=== PATIENT | female | born 1955 | race Caucasian/White ===

== ENCOUNTER 2017-05-18 19:28 | Inpatient (IN) | payer MEDICAID, SELFPAY ==
[~2017-05-18] VITALS: Ht 152.4 cm; Wt 56.2 kg
[2017-05-18] MEDS ORDERED: ALBUTEROL/IPRATROPIUM 2.5MG/0.5MG, 3 ML ONE ×2 (19:53→23:03)
[2017-05-18] MEDS ORDERED: methylPREDNISolone SOD SUCC 125 MG/2 ML IVP ONE (20:00)
[2017-05-18] MEDS ORDERED: PLEASE ENTER ALLERGIES MC SCH ×2 (20:00)
[2017-05-18] MEDS ORDERED: ALBUTEROL/IPRATROPIUM 2.5MG/0.5MG, 3 ML NPPB PRN (20:00)
[2017-05-18] MEDS ORDERED: SODIUM CHLORIDE FLUSH 10ML SYR IVF ONE (20:00)
[2017-05-18] MEDS ORDERED: DILTIAZEM 5 MG/ML, 5ML IV ONE (20:00)
[2017-05-18] MEDS ORDERED: DILTIAZEM 5 MG/ML, 5ML ONE (20:06)
[2017-05-18] MEDS ORDERED: methylPREDNISolone SOD SUCC 125 MG/2 ML ONE (20:07)
[2017-05-18] MEDS ORDERED: OXYcodone/APAP 5/325MG TABLET ONE (20:17)
[2017-05-18] MEDS ORDERED: ONDANSETRON 2MG/ML, 2ML ONE (20:18)
[2017-05-18 20:24] LABS: RAPID INFLUENZA A Negative (Negative); RAPID INFLUENZA B Negative (Negative)
[2017-05-18] MEDS ORDERED: OXYcodone/APAP 5/325MG TABLET PO ONE (20:30)
[2017-05-18] MEDS ORDERED: ONDANSETRON 2MG/ML, 2ML IVPush ONE (20:30)
[2017-05-18 20:48] LABS: ABG COLLECTION SITE LEFT BRACHIAL
[2017-05-18 20:54] LABS: HEMATOCRIT 54.3 % (34.6-47.8); HEMOGLOBIN 18.3 g/dL (11.7-16.4); WHITE BLOOD COUNT 13.8 x10^3/uL (3.4-10)
[2017-05-18 21:00] LABS: BLOOD UREA NITROGEN 11 mg/dL (7-18)
[2017-05-18 21:05] LABS: ASPARTATE AMINO TRANSFERASE 18 U/L (15-37)
[2017-05-18 21:13] LABS: IS PT STATUS REG ER OR PRE ER? YES
[2017-05-18] MEDS ORDERED: LORazepam 2 MG/ML, 1ML ONE (21:18)
[2017-05-18] MEDS ORDERED: LORazepam 2 MG/ML, 1ML IVPush ONE (21:30)
[2017-05-18] MEDS ORDERED: LEVO175T5 PO (21:55)
[2017-05-18] MEDS ORDERED: CITA20TA5 PO (21:56)
[2017-05-18] MEDS ORDERED: CYCL-259 PO (22:06)
[2017-05-18] MEDS ORDERED: HYDR-3307 PO (22:06)
[2017-05-18] MEDS ORDERED: ALPR1TAB6 PO (22:07)
[2017-05-18] MEDS ORDERED: FLUT1AER INH (22:08)
[2017-05-18] MEDS ORDERED: ALBUTEROL INH (22:09)
[2017-05-18] MEDS ORDERED: OXYGEN (22:09)
[2017-05-18] MEDS ORDERED: ONDANSETRON 2MG/ML, 2ML IVPush PRN (23:00)
[2017-05-18] MEDS ORDERED: hydrALAzine 20 MG/ML, 1ML IVPush PRN (23:00)
[2017-05-18] MEDS ORDERED: KETOROLAC 30 MG/1 ML IVPush ONE (23:00)
[2017-05-18] MEDS ORDERED: SODIUM CHLORIDE FLUSH 10ML SYR IVF PRN (23:00)
[2017-05-18] MEDS ORDERED: ENOXAPARIN 40 MG/0.4 ML ONE (23:13)
[2017-05-18] MEDS ORDERED: KETOROLAC 30 MG/1 ML ONE (23:13)
[2017-05-18 23:25] LABS: ABG COLLECTION SITE RIGHT RADIAL; COLLATERAL CIRCULATION TESTING NORMAL
[2017-05-18] MEDS: ENOXAPARIN 40 MG/0.4 ML SQ SCH (23:25)
[2017-05-18] MEDS: SODIUM CHLORIDE 0.9% 1,000 ML IV SCH (23:50)
[2017-05-18] MEDS: DOXYCYCLINE 100 MG in DEXTROSE 5% 250 ML IV SCH (23:51)
[2017-05-19] MEDS: HYDROcodone/APAP 10/325 MG TABLET PO SCH ×2 (00:47→20:56)
[2017-05-19] MEDS ORDERED: HYDROcodone/APAP 10/325 MG TABLET ONE (00:47)
[2017-05-19] MEDS ORDERED: MIDAZOLAM 1 MG/ML, 5ML IVPush ONE (01:45)
[2017-05-19] MEDS ORDERED: ETOMIDATE 20 MG/10 ML IVPush ONE (01:46)
[2017-05-19] MEDS ORDERED: PHARMACY MAY ADJ FOR RENAL FX MC SCH (02:00)
[2017-05-19] MEDS ORDERED: LIDOCAINE-MPF 1%, 2ML ENDO PRN (02:00)
[2017-05-19] MEDS ORDERED: SODIUM CHLORIDE 0.9% 1,000ML IVBOLUS ONE (02:30)
[2017-05-19] MEDS: methylPREDNISolone SOD SUCC 125 MG/2 ML IVPush SCH ×4 (02:44→20:08)
[2017-05-19 02:46] LABS: ABG COLLECTION SITE NOT DOCUMENTED
[2017-05-19 02:47] LABS: HEMOGLOBIN 16.3 g/dL (11.7-16.4)
[2017-05-19 02:58] LABS: BLOOD UREA NITROGEN 18 mg/dL (7-18)
[2017-05-19 04:00] VITALS: BP 114/68
[2017-05-19] MEDS: PROPOFOL 100 ML IV PRN ×4 (05:40→19:36)
[2017-05-19] MEDS: FAMOTIDINE 20 MG/2 ML IV SCH ×2 (05:42→16:13)
[2017-05-19] MEDS: ALBUTEROL/IPRATROPIUM 2.5MG/0.5MG, 3 ML INLINE SCH ×5 (07:15→22:00)
[2017-05-19] MEDS ORDERED: PROPOFOL 10 MG/ML, 100ML IV ONE (08:00)
[2017-05-19] MEDS ORDERED: ETOMIDATE 20 MG/10 ML ONE (08:00)
[2017-05-19] MEDS ORDERED: MIDAZOLAM 1 MG/ML, 5ML ONE (08:00)
[2017-05-19] MEDS: FLUTICASONE/VILANTEROL 100-25MCG/INH INH SCH (09:00)
[2017-05-19] MEDS ORDERED: LEVOTHYROXINE 175 MCG TABLET PO SCH (09:00)
[2017-05-19] MEDS: CITALOPRAM 20 MG TABLET PO SCH (09:48)
[2017-05-19] MEDS: DOXYCYCLINE 100 MG in DEXTROSE 5% 250 ML IV SCH ×2 (12:28→22:59)
[2017-05-19] MEDS: ACETAMINOPHEN 325 MG TABLET PO PRN ×2 (12:57→19:39)
[2017-05-19] MEDS: SODIUM CHLORIDE 0.9% 1,000 ML IV SCH (16:13)
[2017-05-19] MEDS: hydrALAzine 20 MG/ML, 1ML IVPush PRN (17:29)
[2017-05-19] MEDS: ALPRazolam 1MG TABLET PO PRN (19:39)
[2017-05-19] MEDS: ENOXAPARIN 40 MG/0.4 ML SQ SCH (23:04)
[2017-05-20] MEDS ORDERED: ASPI-650 PO (00:42)
[2017-05-20] MEDS: PROPOFOL 100 ML IV PRN ×6 (00:55→22:26)
[2017-05-20] MEDS: ALBUTEROL/IPRATROPIUM 2.5MG/0.5MG, 3 ML INLINE SCH ×6 (02:00→22:00)
[2017-05-20] MEDS: methylPREDNISolone SOD SUCC 125 MG/2 ML IVPush SCH ×4 (02:51→19:10)
[2017-05-20] MEDS: hydrALAzine 20 MG/ML, 1ML IVPush PRN ×2 (03:26→19:08)
[2017-05-20] MEDS: FAMOTIDINE 20 MG/2 ML IV SCH ×2 (03:27→15:39)
[2017-05-20 04:00] VITALS: BP 142/77
[2017-05-20 04:39] LABS: ABG COLLECTION SITE RIGHT RADIAL; COLLATERAL CIRCULATION TESTING NORMAL; HEMATOCRIT 48.9 % (34.6-47.8); HEMOGLOBIN 16.5 g/dL (11.7-16.4); WHITE BLOOD COUNT 19.7 x10^3/uL (3.4-10)
[2017-05-20 04:53] LABS: BLOOD UREA NITROGEN 18 mg/dL (7-18)
[2017-05-20] MEDS: ACETAMINOPHEN 325 MG TABLET PO PRN (05:31)
[2017-05-20] MEDS: LEVOTHYROXINE 75 MCG TABLET PO SCH (05:31)
[2017-05-20] MEDS: LEVOTHYROXINE 100 MCG TABLET PO SCH (05:31)
[2017-05-20] MEDS: SODIUM CHLORIDE 0.9% 1,000 ML IV SCH (05:33)
[2017-05-20] MEDS: CITALOPRAM 20 MG TABLET PO SCH (08:10)
[2017-05-20] MEDS: HYDROcodone/APAP 10/325 MG TABLET PO SCH ×2 (08:10→19:51)
[2017-05-20] MEDS: FLUTICASONE/VILANTEROL 100-25MCG/INH INH SCH (08:12)
[2017-05-20] MEDS: DOXYCYCLINE 100 MG in DEXTROSE 5% 250 ML IV SCH ×2 (11:16→22:25)
[2017-05-20] MEDS: ALPRazolam 1MG TABLET PO PRN ×2 (14:06→23:51)
[2017-05-20] MEDS: FENTANYL PF 100 MCG/2ML IVPush PRN ×2 (20:36→22:25)
[2017-05-20] MEDS: ENOXAPARIN 40 MG/0.4 ML SQ SCH (22:57)
[2017-05-21] MEDS: hydrALAzine 20 MG/ML, 1ML IVPush PRN ×5 (00:25→19:53)
[2017-05-21] MEDS: FENTANYL PF 100 MCG/2ML IVPush PRN ×5 (01:36→14:14)
[2017-05-21] MEDS: ALBUTEROL/IPRATROPIUM 2.5MG/0.5MG, 3 ML INLINE SCH ×6 (02:00→22:00)
[2017-05-21] MEDS: methylPREDNISolone SOD SUCC 125 MG/2 ML IVPush SCH ×4 (02:45→20:48)
[2017-05-21] MEDS: PROPOFOL 100 ML IV PRN ×4 (03:34→19:41)
[2017-05-21] MEDS: FAMOTIDINE 20 MG/2 ML IV SCH ×2 (03:34→16:28)
[2017-05-21 04:13] VITALS: BP 129/78
[2017-05-21 04:14] LABS: ABG COLLECTION SITE NOT DOCUMENTED
[2017-05-21 04:18] LABS: HEMOGLOBIN 15.8 g/dL (11.7-16.4); WHITE BLOOD COUNT 21.2 x10^3/uL (3.4-10)
[2017-05-21 04:25] LABS: BLOOD UREA NITROGEN 27 mg/dL (7-18)
[2017-05-21] MEDS: LEVOTHYROXINE 75 MCG TABLET PO SCH (06:12)
[2017-05-21] MEDS: LEVOTHYROXINE 100 MCG TABLET PO SCH (06:12)
[2017-05-21] MEDS: ALPRazolam 1MG TABLET PO PRN (07:50)
[2017-05-21] MEDS: CITALOPRAM 20 MG TABLET PO SCH (07:50)
[2017-05-21] MEDS: FLUTICASONE/VILANTEROL 100-25MCG/INH INH SCH (07:50)
[2017-05-21] MEDS: HYDROcodone/APAP 10/325 MG TABLET PO PRN ×2 (10:34→20:48)
[2017-05-21] MEDS: DOXYCYCLINE 100 MG in DEXTROSE 5% 250 ML IV SCH ×2 (10:34→23:35)
[2017-05-21] MEDS: INSULIN ASPART 100 UNITS/ML, 3ML PEN LOW DOSE SS SQ-INSULIN SCH ×3 (11:21→21:29)
[2017-05-21] MEDS: FUROSEMIDE 40 MG/4 ML IV SCH (16:32)
[2017-05-21] MEDS: ENOXAPARIN 40 MG/0.4 ML SQ SCH (23:36)
[2017-05-22] MEDS: hydrALAzine 20 MG/ML, 1ML IVPush PRN ×3 (00:59→06:33)
[2017-05-22] MEDS: PROPOFOL 100 ML IV PRN ×5 (01:07→22:35)
[2017-05-22] MEDS: ALBUTEROL/IPRATROPIUM 2.5MG/0.5MG, 3 ML INLINE SCH ×7 (02:00→22:51)
[2017-05-22] MEDS: methylPREDNISolone SOD SUCC 125 MG/2 ML IVPush SCH ×4 (02:04→20:09)
[2017-05-22] MEDS: ALPRazolam 1MG TABLET PO PRN (02:05)
[2017-05-22 04:00] VITALS: BP 170/88
[2017-05-22 04:29] LABS: ABG COLLECTION SITE RIGHT RADIAL; COLLATERAL CIRCULATION TESTING NORMAL
[2017-05-22] MEDS: FENTANYL PF 100 MCG/2ML IVPush PRN ×2 (04:35→06:33)
[2017-05-22] MEDS: FAMOTIDINE 20 MG/2 ML IV SCH ×2 (04:35→16:09)
[2017-05-22] MEDS: INSULIN ASPART 100 UNITS/ML, PEN SQ-INSULIN SCH ×4 (04:36→22:36)
[2017-05-22 04:43] LABS: BLOOD UREA NITROGEN 29 mg/dL (7-18)
[2017-05-22 04:46] LABS: HEMOGLOBIN 15.8 g/dL (11.7-16.4); WHITE BLOOD COUNT 19.4 x10^3/uL (3.4-10)
[2017-05-22] MEDS: LEVOTHYROXINE 75 MCG TABLET PO SCH (05:05)
[2017-05-22] MEDS: LEVOTHYROXINE 100 MCG TABLET PO SCH (05:06)
[2017-05-22] MEDS: FUROSEMIDE 40 MG/4 ML IV SCH ×2 (07:39→17:11)
[2017-05-22] MEDS ORDERED: RISPERIDONE 0.5 MG TABLET PO SCH (09:00)
[2017-05-22] MEDS: CITALOPRAM 20 MG TABLET PO SCH (09:01)
[2017-05-22] MEDS ORDERED: RISPERIDONE 1 MG/ML ORAL SOLN NG SCH (09:27)
[2017-05-22] MEDS: RISPERIDONE 1 MG/ML ORAL SOLN NG SCH ×2 (09:45→20:10)
[2017-05-22] MEDS: DOXYCYCLINE 100 MG in DEXTROSE 5% 250 ML IV SCH ×2 (11:12→23:07)
[2017-05-22] MEDS: ENOXAPARIN 40 MG/0.4 ML SQ SCH (23:07)
[2017-05-22] MEDS: HYDROcodone/APAP 10/325 MG TABLET PO PRN (23:57)
[2017-05-23] MEDS: PROPOFOL 100 ML IV PRN ×3 (02:25→13:12)
[2017-05-23] MEDS: ALBUTEROL/IPRATROPIUM 2.5MG/0.5MG, 3 ML INLINE SCH ×6 (02:49→22:21)
[2017-05-23] MEDS: FAMOTIDINE 20 MG/2 ML IV SCH ×2 (03:21→17:05)
[2017-05-23] MEDS: methylPREDNISolone SOD SUCC 125 MG/2 ML IVPush SCH ×4 (03:21→21:26)
[2017-05-23 04:00] VITALS: BP 156/79
[2017-05-23] MEDS: INSULIN ASPART 100 UNITS/ML, PEN SQ-INSULIN SCH ×4 (04:05→23:20)
[2017-05-23] MEDS: ALPRazolam 1MG TABLET PO PRN ×3 (04:06→22:11)
[2017-05-23 04:34] LABS: ABG COLLECTION SITE RIGHT BRACHIAL
[2017-05-23 04:37] LABS: HEMATOCRIT 46.5 % (34.6-47.8); HEMOGLOBIN 15.8 g/dL (11.7-16.4); WHITE BLOOD COUNT 16.5 x10^3/uL (3.4-10)
[2017-05-23 04:38] LABS: BLOOD UREA NITROGEN 36 mg/dL (7-18)
[2017-05-23] MEDS: LEVOTHYROXINE 100 MCG TABLET PO SCH (05:04)
[2017-05-23] MEDS: LEVOTHYROXINE 75 MCG TABLET PO SCH (05:04)
[2017-05-23] MEDS: RISPERIDONE 1 MG/ML ORAL SOLN NG SCH ×2 (08:26→21:27)
[2017-05-23] MEDS: CITALOPRAM 20 MG TABLET PO SCH (08:26)
[2017-05-23] MEDS: FUROSEMIDE 40 MG/4 ML IV SCH (08:26)
[2017-05-23] MEDS ORDERED: BISACODYL 10 MG SUPP PR PRN (09:00)
[2017-05-23] MEDS ORDERED: ENALAPRILAT 1.25 MG/ML, 2ML IV PRN (09:00)
[2017-05-23] MEDS: AcetaZOLAMIDE INJ 500 MG IVPush SCH ×2 (10:59→22:02)
[2017-05-23] MEDS: DOCUSATE 50 MG/5 ML, 10ML UDC PO SCH (10:59)
[2017-05-23] MEDS: DOXYCYCLINE 100 MG in DEXTROSE 5% 250 ML IV SCH ×2 (11:00→23:16)
[2017-05-23] MEDS: HYDROcodone/APAP 10/325 MG TABLET PO PRN ×2 (12:59→22:11)
[2017-05-23] MEDS: ACETAMINOPHEN 325 MG TABLET PO PRN (18:41)
[2017-05-23 20:55] LABS: IS PT STATUS REG ER OR PRE ER? NO
[2017-05-23] MEDS: SENNOSIDES 8.8 MG/5 ML ORAL SOL NG SCH (22:02)
[2017-05-23] MEDS: ENOXAPARIN 40 MG/0.4 ML SQ SCH (23:16)
[2017-05-24] MEDS: PROPOFOL 100 ML IV PRN ×3 (01:02→16:12)
[2017-05-24] MEDS: ALBUTEROL/IPRATROPIUM 2.5MG/0.5MG, 3 ML INLINE SCH ×6 (02:30→22:00)
[2017-05-24] MEDS: methylPREDNISolone SOD SUCC 125 MG/2 ML IVPush SCH ×4 (02:33→19:54)
[2017-05-24 03:26] LABS: ABG COLLECTION SITE RIGHT RADIAL; COLLATERAL CIRCULATION TESTING NORMAL
[2017-05-24 03:45] LABS: BLOOD UREA NITROGEN 39 mg/dL (7-18)
[2017-05-24 03:47] LABS: HEMATOCRIT 48.8 % (34.6-47.8); HEMOGLOBIN 16.1 g/dL (11.7-16.4); WHITE BLOOD COUNT 19.8 x10^3/uL (3.4-10)
[2017-05-24 04:00] VITALS: BP 158/84
[2017-05-24] MEDS: ACETAMINOPHEN 325 MG TABLET PO PRN ×2 (04:27→10:29)
[2017-05-24] MEDS: FAMOTIDINE 20 MG/2 ML IV SCH ×2 (04:27→16:16)
[2017-05-24] MEDS: INSULIN ASPART 100 UNITS/ML, PEN SQ-INSULIN SCH ×4 (05:24→23:08)
[2017-05-24] MEDS: ALPRazolam 1MG TABLET PO PRN ×2 (06:39→19:15)
[2017-05-24] MEDS: LEVOTHYROXINE 175 MCG TABLET PO SCH (06:39)
[2017-05-24] MEDS: LACTULOSE 20 GM/30 ML UDC PO PRN (07:41)
[2017-05-24] MEDS: AcetaZOLAMIDE INJ 500 MG IVPush SCH ×2 (07:41→21:23)
[2017-05-24] MEDS: HYDROcodone/APAP 10/325 MG TABLET PO PRN ×2 (07:41→19:15)
[2017-05-24] MEDS: DOCUSATE 50 MG/5 ML, 10ML UDC PO SCH (07:41)
[2017-05-24] MEDS: CITALOPRAM 20 MG TABLET PO SCH (07:41)
[2017-05-24] MEDS: RISPERIDONE 1 MG/ML ORAL SOLN NG SCH ×2 (07:42→21:23)
[2017-05-24] MEDS: CEFTRIAXONE PMX 1GM/50ML 50 ML IV SCH (11:56)
[2017-05-24] MEDS ORDERED: SODIUM CHLORIDE 0.9%, 500ML IVBOLUS ONE (16:00)
[2017-05-24] MEDS ORDERED: SODIUM CHLORIDE 0.9%, 250ML IVBOLUS ONE (17:00)
[2017-05-24] MEDS ORDERED: DOXYCYCLINE 100MG TABLET PO SCH (21:00)
[2017-05-24] MEDS: SENNOSIDES 8.8 MG/5 ML ORAL SOL NG SCH (21:22)
[2017-05-24] MEDS: DOXYCYCLINE 50 MG/5 ML ORAL SUSP PO SCH (22:11)
[2017-05-24] MEDS: ENOXAPARIN 40 MG/0.4 ML SQ SCH (23:07)
[2017-05-25] MEDS: PROPOFOL 100 ML IV PRN (01:36)
[2017-05-25] MEDS: ALBUTEROL/IPRATROPIUM 2.5MG/0.5MG, 3 ML INLINE SCH ×2 (02:00→06:00)
[2017-05-25] MEDS: methylPREDNISolone SOD SUCC 125 MG/2 ML IVPush SCH ×4 (02:41→20:31)
[2017-05-25 04:00] VITALS: BP 128/65
[2017-05-25] MEDS: FAMOTIDINE 20 MG/2 ML IV SCH ×2 (04:04→15:19)
[2017-05-25 04:22] LABS: ABG COLLECTION SITE RIGHT RADIAL; COLLATERAL CIRCULATION TESTING NORMAL
[2017-05-25 04:25] LABS: HEMOGLOBIN 14.8 g/dL (11.7-16.4); WHITE BLOOD COUNT 17.1 x10^3/uL (3.4-10)
[2017-05-25 04:36] LABS: BLOOD UREA NITROGEN 42 mg/dL (7-18)
[2017-05-25] MEDS: INSULIN ASPART 100 UNITS/ML, PEN SQ-INSULIN SCH ×4 (05:12→23:05)
[2017-05-25] MEDS: LEVOTHYROXINE 175 MCG TABLET PO SCH (06:21)
[2017-05-25] MEDS: ALPRazolam 1MG TABLET PO PRN ×2 (06:21→17:45)
[2017-05-25] MEDS: DOXYCYCLINE 50 MG/5 ML ORAL SUSP PO SCH ×2 (07:34→20:32)
[2017-05-25] MEDS: RISPERIDONE 1 MG/ML ORAL SOLN NG SCH ×2 (07:34→20:32)
[2017-05-25] MEDS: HYDROcodone/APAP 10/325 MG TABLET PO PRN ×4 (07:34→22:25)
[2017-05-25] MEDS: DOCUSATE 50 MG/5 ML, 10ML UDC PO SCH (07:35)
[2017-05-25] MEDS: CITALOPRAM 20 MG TABLET PO SCH (07:35)
[2017-05-25] MEDS: ALBUTEROL/IPRATROPIUM 2.5MG/0.5MG, 3 ML NPPB SCH ×4 (11:00→23:05)
[2017-05-25] MEDS ORDERED: ALBUTEROL/IPRATROPIUM 2.5MG/0.5MG, 3 ML NPPB PRN (11:00)
[2017-05-25] MEDS: CEFTRIAXONE PMX 1GM/50ML 50 ML IV SCH (12:39)
[2017-05-25] MEDS: ENOXAPARIN 40 MG/0.4 ML SQ SCH (23:03)
[2017-05-26] MEDS: ALPRazolam 1MG TABLET PO PRN ×3 (01:46→20:02)
[2017-05-26] MEDS: ALBUTEROL/IPRATROPIUM 2.5MG/0.5MG, 3 ML NPPB SCH ×5 (03:10→23:00)
[2017-05-26] MEDS: methylPREDNISolone SOD SUCC 125 MG/2 ML IVPush SCH ×4 (03:30→20:06)
[2017-05-26 04:00] VITALS: BP 135/65
[2017-05-26 04:31] LABS: HEMATOCRIT 44.3 % (34.6-47.8); HEMOGLOBIN 14.6 g/dL (11.7-16.4); WHITE BLOOD COUNT 18.9 x10^3/uL (3.4-10)
[2017-05-26 04:46] LABS: BLOOD UREA NITROGEN 39 mg/dL (7-18)
[2017-05-26 04:46] LABS: ABG COLLECTION SITE RIGHT RADIAL; COLLATERAL CIRCULATION TESTING NORMAL
[2017-05-26] MEDS: FAMOTIDINE 20 MG/2 ML IV SCH ×2 (04:55→16:00)
[2017-05-26] MEDS: INSULIN ASPART 100 UNITS/ML, PEN SQ-INSULIN SCH ×4 (05:12→23:41)
[2017-05-26] MEDS: LEVOTHYROXINE 175 MCG TABLET PO SCH (06:48)
[2017-05-26] MEDS: CITALOPRAM 20 MG TABLET PO SCH (08:30)
[2017-05-26] MEDS: DOCUSATE 50 MG/5 ML, 10ML UDC PO SCH (08:30)
[2017-05-26] MEDS: RISPERIDONE 1 MG/ML ORAL SOLN NG SCH ×2 (08:30→21:33)
[2017-05-26] MEDS: DOXYCYCLINE 50 MG/5 ML ORAL SUSP PO SCH ×2 (08:30→21:33)
[2017-05-26] MEDS ORDERED: FUROSEMIDE 20 MG/2 ML IV ONE (09:00)
[2017-05-26] MEDS: CEFTRIAXONE PMX 1GM/50ML 50 ML IV SCH (11:40)
[2017-05-26] MEDS ORDERED: FUROSEMIDE 40 MG/4 ML IV ONE (12:00)
[2017-05-26] MEDS ORDERED: AcetaZOLAMIDE INJ 500 MG IVPush ONE (12:00)
[2017-05-26] MEDS: HYDROcodone/APAP 10/325 MG TABLET PO PRN (20:02)
[2017-05-26] MEDS: ENOXAPARIN 40 MG/0.4 ML SQ SCH (23:40)
[2017-05-27] MEDS: methylPREDNISolone SOD SUCC 125 MG/2 ML IVPush SCH ×4 (02:49→20:32)
[2017-05-27] MEDS: HYDROcodone/APAP 10/325 MG TABLET PO PRN ×4 (02:49→20:32)
[2017-05-27] MEDS: ALBUTEROL/IPRATROPIUM 2.5MG/0.5MG, 3 ML NPPB SCH ×6 (02:57→22:30)
[2017-05-27 04:00] VITALS: BP 140/77
[2017-05-27 04:32] LABS: HEMATOCRIT 41.8 % (34.6-47.8); HEMOGLOBIN 13.9 g/dL (11.7-16.4); WHITE BLOOD COUNT 21.9 x10^3/uL (3.4-10)
[2017-05-27] MEDS: ALPRazolam 1MG TABLET PO PRN ×2 (04:39→14:06)
[2017-05-27] MEDS: FAMOTIDINE 20 MG/2 ML IV SCH ×2 (04:39→17:00)
[2017-05-27 04:41] LABS: ABG COLLECTION SITE RIGHT RADIAL; COLLATERAL CIRCULATION TESTING NORMAL
[2017-05-27 04:44] LABS: BLOOD UREA NITROGEN 42 mg/dL (7-18)
[2017-05-27] MEDS: INSULIN ASPART 100 UNITS/ML, PEN SQ-INSULIN SCH ×4 (04:46→23:48)
[2017-05-27] MEDS: LEVOTHYROXINE 175 MCG TABLET PO SCH (06:25)
[2017-05-27] MEDS ORDERED: FUROSEMIDE 20 MG/2 ML ONE (07:48)
[2017-05-27] MEDS: CITALOPRAM 20 MG TABLET PO SCH (07:54)
[2017-05-27] MEDS: DOCUSATE 50 MG/5 ML, 10ML UDC PO SCH (07:54)
[2017-05-27] MEDS: RISPERIDONE 1 MG/ML ORAL SOLN NG SCH ×2 (07:54→20:32)
[2017-05-27] MEDS: DOXYCYCLINE 50 MG/5 ML ORAL SUSP PO SCH ×2 (07:54→20:32)
[2017-05-27] MEDS ORDERED: FUROSEMIDE 20 MG/2 ML IV ONE (08:00)
[2017-05-27] MEDS ORDERED: AcetaZOLAMIDE INJ 500 MG IVPush ONE (09:00)
[2017-05-27] MEDS: CEFTRIAXONE PMX 1GM/50ML 50 ML IV SCH (11:59)
[2017-05-27] MEDS: ENOXAPARIN 40 MG/0.4 ML SQ SCH (23:48)
[2017-05-28] MEDS: HYDROcodone/APAP 10/325 MG TABLET PO PRN ×3 (01:30→15:05)
[2017-05-28] MEDS: ALBUTEROL/IPRATROPIUM 2.5MG/0.5MG, 3 ML NPPB SCH ×6 (02:10→22:40)
[2017-05-28] MEDS: methylPREDNISolone SOD SUCC 125 MG/2 ML IVPush SCH ×4 (02:48→19:34)
[2017-05-28 04:45] LABS: ABG COLLECTION SITE RIGHT BRACHIAL
[2017-05-28 04:48] LABS: HEMATOCRIT 42.1 % (34.6-47.8); HEMOGLOBIN 14.2 g/dL (11.7-16.4); WHITE BLOOD COUNT 17.8 x10^3/uL (3.4-10)
[2017-05-28 05:00] LABS: BLOOD UREA NITROGEN 41 mg/dL (7-18)
[2017-05-28] MEDS: ALPRazolam 1MG TABLET PO PRN ×2 (05:02→11:46)
[2017-05-28] MEDS: hydrALAzine 20 MG/ML, 1ML IVPush PRN (05:02)
[2017-05-28] MEDS: FAMOTIDINE 20 MG/2 ML IV SCH ×2 (05:02→14:54)
[2017-05-28 05:30] VITALS: BP 146/57
[2017-05-28] MEDS: INSULIN ASPART 100 UNITS/ML, PEN SQ-INSULIN SCH ×3 (05:45→17:30)
[2017-05-28] MEDS: LEVOTHYROXINE 175 MCG TABLET PO SCH (06:33)
[2017-05-28] MEDS ORDERED: AcetaZOLAMIDE INJ 500 MG IVPush ONE (08:30)
[2017-05-28] MEDS: CITALOPRAM 20 MG TABLET PO SCH (08:35)
[2017-05-28] MEDS: RISPERIDONE 1 MG/ML ORAL SOLN NG SCH ×2 (08:35→21:44)
[2017-05-28] MEDS: DOCUSATE 50 MG/5 ML, 10ML UDC PO SCH (08:35)
[2017-05-28] MEDS: LACTULOSE 20 GM/30 ML UDC PO PRN (08:36)
[2017-05-28] MEDS: DOXYCYCLINE 50 MG/5 ML ORAL SUSP PO SCH ×2 (08:36→21:44)
[2017-05-28] MEDS: CEFTRIAXONE PMX 1GM/50ML 50 ML IV SCH (11:46)
[2017-05-28] MEDS ORDERED: methylPREDNISolone SOD SUCC 125 MG/2 ML IVPush SCH (17:00)
[2017-05-29] MEDS: ALPRazolam 1MG TABLET PO PRN ×2 (00:56→23:26)
[2017-05-29] MEDS: ENOXAPARIN 40 MG/0.4 ML SQ SCH ×2 (00:56→23:26)
[2017-05-29] MEDS: INSULIN ASPART 100 UNITS/ML, PEN SQ-INSULIN SCH ×5 (00:57→23:00)
[2017-05-29] MEDS: ALBUTEROL/IPRATROPIUM 2.5MG/0.5MG, 3 ML NPPB SCH ×6 (02:00→22:05)
[2017-05-29] MEDS: methylPREDNISolone SOD SUCC 125 MG/2 ML IVPush SCH ×4 (02:20→21:12)
[2017-05-29 04:16] LABS: ABG COLLECTION SITE LEFT RADIAL; COLLATERAL CIRCULATION TESTING NORMAL
[2017-05-29 04:29] LABS: BLOOD UREA NITROGEN 40 mg/dL (7-18); HEMATOCRIT 43.9 % (34.6-47.8); HEMOGLOBIN 14.7 g/dL (11.7-16.4); WHITE BLOOD COUNT 18.8 x10^3/uL (3.4-10)
[2017-05-29] MEDS: FAMOTIDINE 20 MG/2 ML IV SCH ×2 (04:50→13:53)
[2017-05-29 05:45] VITALS: BP 166/75
[2017-05-29] MEDS: LEVOTHYROXINE 175 MCG TABLET PO SCH (06:38)
[2017-05-29] MEDS: CITALOPRAM 20 MG TABLET PO SCH (07:50)
[2017-05-29] MEDS: DOXYCYCLINE 50 MG/5 ML ORAL SUSP PO SCH ×2 (07:50→21:13)
[2017-05-29] MEDS: DOCUSATE 50 MG/5 ML, 10ML UDC PO SCH (07:50)
[2017-05-29] MEDS: RISPERIDONE 1 MG/ML ORAL SOLN NG SCH ×2 (07:51→21:13)
[2017-05-29] MEDS ORDERED: AcetaZOLAMIDE INJ 500 MG IVPush ONE (09:00)
[2017-05-29] MEDS: NYSTATIN 500,000 UNITS/5 ML UDC PO SCH ×3 (10:51→21:13)
[2017-05-29] MEDS: CEFTRIAXONE PMX 1GM/50ML 50 ML IV SCH (13:53)
[2017-05-29] MEDS: HYDROcodone/APAP 10/325 MG TABLET PO PRN ×2 (14:51→21:13)
[2017-05-29 21:46] VITALS: BP 130/88
[2017-05-30] MEDS: HYDROcodone/APAP 10/325 MG TABLET PO PRN ×2 (02:39→20:31)
[2017-05-30] MEDS: methylPREDNISolone SOD SUCC 125 MG/2 ML IVPush SCH ×4 (02:39→20:17)
[2017-05-30] MEDS: ALBUTEROL/IPRATROPIUM 2.5MG/0.5MG, 3 ML NPPB SCH ×6 (03:00→23:00)
[2017-05-30 04:00] VITALS: BP 131/80
[2017-05-30] MEDS: FAMOTIDINE 20 MG/2 ML IV SCH (04:31)
[2017-05-30 04:37] LABS: ABG COLLECTION SITE RIGHT BRACHIAL
[2017-05-30 04:51] LABS: BLOOD UREA NITROGEN 48 mg/dL (7-18)
[2017-05-30 04:59] LABS: HEMATOCRIT 41.7 % (34.6-47.8); HEMOGLOBIN 13.8 g/dL (11.7-16.4); WHITE BLOOD COUNT 22.9 x10^3/uL (3.4-10)
[2017-05-30] MEDS: INSULIN ASPART 100 UNITS/ML, PEN SQ-INSULIN SCH ×4 (05:01→20:19)
[2017-05-30] MEDS: NYSTATIN 500,000 UNITS/5 ML UDC PO SCH ×4 (06:11→20:18)
[2017-05-30] MEDS: LEVOTHYROXINE 175 MCG TABLET PO SCH (06:30)
[2017-05-30] MEDS: DOCUSATE 50 MG/5 ML, 10ML UDC PO SCH (10:25)
[2017-05-30] MEDS: PANTOPROZOLE 40MG TABLET PO SCH (10:25)
[2017-05-30] MEDS: DOXYCYCLINE 50 MG/5 ML ORAL SUSP PO SCH ×2 (10:25→20:18)
[2017-05-30] MEDS: RISPERIDONE 1 MG/ML ORAL SOLN NG SCH ×2 (10:25→20:18)
[2017-05-30] MEDS: CITALOPRAM 20 MG TABLET PO SCH (10:25)
[2017-05-30] MEDS: CEFTRIAXONE PMX 1GM/50ML 50 ML IV SCH (12:06)
[2017-05-30] MEDS: ALPRazolam 1MG TABLET PO PRN (20:31)
[2017-05-30] MEDS: ENOXAPARIN 40 MG/0.4 ML SQ SCH (23:59)
[2017-05-31] MEDS: methylPREDNISolone SOD SUCC 125 MG/2 ML IVPush SCH ×2 (02:18→07:43)
[2017-05-31] MEDS: ALBUTEROL/IPRATROPIUM 2.5MG/0.5MG, 3 ML NPPB SCH ×6 (03:00→21:49)
[2017-05-31 04:00] VITALS: BP 128/60
[2017-05-31 04:32] LABS: ABG COLLECTION SITE RIGHT BRACHIAL
[2017-05-31] MEDS: LEVOTHYROXINE 175 MCG TABLET PO SCH (04:48)
[2017-05-31] MEDS: NYSTATIN 500,000 UNITS/5 ML UDC PO SCH ×4 (05:51→21:59)
[2017-05-31] MEDS: INSULIN ASPART 100 UNITS/ML, PEN SQ-INSULIN SCH ×4 (05:59→19:50)
[2017-05-31 06:15] LABS: BLOOD UREA NITROGEN 44 mg/dL (7-18)
[2017-05-31 06:17] LABS: HEMATOCRIT 40.1 % (34.6-47.8); HEMOGLOBIN 13.3 g/dL (11.7-16.4); WHITE BLOOD COUNT 15.8 x10^3/uL (3.4-10)
[2017-05-31] MEDS: CITALOPRAM 20 MG TABLET PO SCH (07:42)
[2017-05-31] MEDS: PANTOPROZOLE 40MG TABLET PO SCH (07:42)
[2017-05-31] MEDS: DOCUSATE 50 MG/5 ML, 10ML UDC PO SCH (07:43)
[2017-05-31] MEDS: DOXYCYCLINE 50 MG/5 ML ORAL SUSP PO SCH ×2 (07:43→22:00)
[2017-05-31] MEDS: RISPERIDONE 1 MG/ML ORAL SOLN NG SCH ×2 (07:43→22:00)
[2017-05-31] MEDS: CEFTRIAXONE PMX 1GM/50ML 50 ML IV SCH (10:58)
[2017-05-31] MEDS: GUAIFENESIN 200 MG TABLET PO SCH ×3 (10:58→22:00)
[2017-05-31] MEDS: methylPREDNISolone SOD SUCC 40 MG/ML IVPush SCH (16:51)
[2017-05-31 19:16] VITALS: BP 154/78
[2017-05-31] MEDS: HYDROcodone/APAP 10/325 MG TABLET PO PRN (22:01)
[2017-06-01] MEDS: methylPREDNISolone SOD SUCC 40 MG/ML IVPush SCH ×3 (00:01→16:14)
[2017-06-01] MEDS: ENOXAPARIN 40 MG/0.4 ML SQ SCH (00:01)
[2017-06-01 02:02] VITALS: BP 116/73
[2017-06-01 05:10] LABS: HEMATOCRIT 41.2 % (34.6-47.8); HEMOGLOBIN 13.8 g/dL (11.7-16.4); WHITE BLOOD COUNT 18.6 x10^3/uL (3.4-10)
[2017-06-01 05:23] LABS: ASPARTATE AMINO TRANSFERASE 15 U/L (15-37); BLOOD UREA NITROGEN 42 mg/dL (7-18)
[2017-06-01] MEDS: GUAIFENESIN 200 MG TABLET PO SCH ×4 (05:26→21:34)
[2017-06-01] MEDS: NYSTATIN 500,000 UNITS/5 ML UDC PO SCH ×4 (05:28→21:35)
[2017-06-01] MEDS: LEVOTHYROXINE 175 MCG TABLET PO SCH (05:30)
[2017-06-01 06:51] LABS: DIFF TOTAL CELLS COUNTED 100 CELL DIFF
[2017-06-01 06:52] LABS: VERIFY COUNTS? YES
[2017-06-01] MEDS: INSULIN ASPART 100 UNITS/ML, PEN SQ-INSULIN SCH ×4 (07:00→21:48)
[2017-06-01 07:51] VITALS: BP 144/83
[2017-06-01] MEDS: PANTOPROZOLE 40MG TABLET PO SCH (08:08)
[2017-06-01] MEDS: CITALOPRAM 20 MG TABLET PO SCH (08:09)
[2017-06-01] MEDS: DOXYCYCLINE 50 MG/5 ML ORAL SUSP PO SCH ×2 (08:09→21:47)
[2017-06-01] MEDS: RISPERIDONE 1 MG/ML ORAL SOLN NG SCH (08:28)
[2017-06-01] MEDS: ALBUTEROL/IPRATROPIUM 2.5MG/0.5MG, 3 ML NPPB SCH ×5 (08:30→22:05)
[2017-06-01] MEDS: DOCUSATE 50 MG/5 ML, 10ML UDC PO SCH (08:31)
[2017-06-01] MEDS: CEFTRIAXONE PMX 1GM/50ML 50 ML IV SCH (12:09)
[2017-06-01 13:42] VITALS: BP 136/80
[2017-06-01 20:00] VITALS: BP 113/67
[2017-06-01] MEDS: RISPERIDONE 1 MG TABLET PO SCH (21:33)
[2017-06-02] MEDS: ENOXAPARIN 40 MG/0.4 ML SQ SCH (00:26)
[2017-06-02] MEDS: methylPREDNISolone SOD SUCC 40 MG/ML IVPush SCH ×2 (00:26→07:57)
[2017-06-02 04:00] VITALS: BP 125/71
[2017-06-02] MEDS: GUAIFENESIN 200 MG TABLET PO SCH ×2 (05:18→11:29)
[2017-06-02] MEDS: NYSTATIN 500,000 UNITS/5 ML UDC PO SCH ×2 (05:18→11:00)
[2017-06-02] MEDS: LEVOTHYROXINE 175 MCG TABLET PO SCH (05:19)
[2017-06-02 05:32] LABS: HEMATOCRIT 38.2 % (34.6-47.8); HEMOGLOBIN 12.8 g/dL (11.7-16.4); WHITE BLOOD COUNT 15.5 x10^3/uL (3.4-10)
[2017-06-02 05:54] LABS: BLOOD UREA NITROGEN 26 mg/dL (7-18)
[2017-06-02] MEDS: ALBUTEROL/IPRATROPIUM 2.5MG/0.5MG, 3 ML NPPB SCH ×2 (06:00→14:00)
[2017-06-02 07:32] VITALS: BP 137/72
[2017-06-02] MEDS: INSULIN ASPART 100 UNITS/ML, PEN SQ-INSULIN SCH ×2 (07:57→11:00)
[2017-06-02] MEDS: DOCUSATE 50 MG/5 ML, 10ML UDC PO SCH (09:00)
[2017-06-02] MEDS: DOXYCYCLINE 50 MG/5 ML ORAL SUSP PO SCH (09:33)
[2017-06-02] MEDS: CITALOPRAM 20 MG TABLET PO SCH (09:34)
[2017-06-02] MEDS: PANTOPROZOLE 40MG TABLET PO SCH (09:34)
[2017-06-02] MEDS: RISPERIDONE 1 MG TABLET PO SCH (09:34)
[2017-06-02] MEDS: CEFTRIAXONE PMX 1GM/50ML 50 ML IV SCH (11:29)
[2017-06-02] MEDS ORDERED: PRED5TAB PO (12:32)
[2017-06-02] MEDS ORDERED: DOXY50SY PO (12:32)
[2017-06-02] MEDS ORDERED: CEFD300C37 PO (12:35)
[2017-06-02] MEDS ORDERED: DOXY100T PO (12:37)
[2017-06-02 13:27] VITALS: BP 132/80
[2017-06-02] MEDS ORDERED: PNEUMOCOCCAL 23 VACCINE IM-VACC ONE (14:00)
== END 2017-06-02 15:20 | disposition home or self-care (01) | DRG 207 ==
LOC: ED 22:15 → EDIP 22:34 → SUATTDRO 22:51 → CCU 23:34 → ICU 05-21 11:43 → CCU 05-22 19:35 → 4WST 05-31 15:44 → DCLOUNGE 06-02 15:10
PROVIDERS: ADMIT Hospitalist; ATTEND Family Medicine
PROC: 5A09357 Assistance with Respiratory Ventilation, Less than 24 Consecutive Hours, Continuous Positive Airway Pressure (ICD-10-PCS; 2017-05-18)
PROC: 0BH17EZ Insertion of Endotracheal Airway into Trachea, Via Natural or Artificial Opening (ICD-10-PCS; 2017-05-19)
PROC: 5A1955Z Respiratory Ventilation, Greater than 96 Consecutive Hours (ICD-10-PCS; principal; 2017-05-20)
DX: J96.21 Acute and chronic respiratory failure with hypoxia (principal); G93.41 Metabolic encephalopathy; E87.4 Mixed disorder of acid-base balance; J18.9 Pneumonia, unspecified organism; J44.0 Chronic obstructive pulmonary disease with (acute) lower respiratory infection; J44.1 Chronic obstructive pulmonary disease with (acute) exacerbation; Z99.11 Dependence on respirator [ventilator] status; D75.1 Secondary polycythemia; E03.9 Hypothyroidism, unspecified; F17.210 Nicotine dependence, cigarettes, uncomplicated; F32.9 Major depressive disorder, single episode, unspecified; F41.9 Anxiety disorder, unspecified; G89.29 Other chronic pain; I10 Essential (primary) hypertension; I25.10 Atherosclerotic heart disease of native coronary artery without angina pectoris; J96.22 Acute and chronic respiratory failure with hypercapnia; R73.9 Hyperglycemia, unspecified; M62.838 Other muscle spasm; M40.209 Unspecified kyphosis, site unspecified; T38.0X5A Adverse effect of glucocorticoids and synthetic analogues, initial encounter; Z51.5 Encounter for palliative care; Z95.5 Presence of coronary angioplasty implant and graft; Z99.81 Dependence on supplemental oxygen; Z90.49 Acquired absence of other specified parts of digestive tract; Z90.710 Acquired absence of both cervix and uterus; Z88.6 Allergy status to analgesic agent; Z88.5 Allergy status to narcotic agent
CPT/HCPCS: 36415; 36600; 71010; 74000; 74230; 80048; 80053; 82375; 82803; 82962; 83735; 83880; 84100; 84478; 84484; 85025; 87040; 87070; 87081; 87205; 87400; 93005; 94002; 94003; 94150; 94640; 94660; J0696; J1650; J1815; J1885; J1940; J2250; J2405; J2704; J3010; J7060; J7620; J0360; J1120; J2060; J2920; J2930; J7030; J7040; J7050; S0028

== ENCOUNTER 2017-07-27 10:49 | Inpatient (IN) | payer MEDICAID ==
[~2017-07-27] VITALS: Ht 152.4 cm; Wt 57.6 kg
[~2017-07-27 10:49] MED LIST: ALBUTEROL INH; ALPR1TAB6 PO; ASPI-650 PO; CEFD300C37 PO; CITA20TA5 PO; CYCL-259 PO; DOXY100T PO; DOXY50SY PO; FLUT1AER INH; HYDR-3307 PO; LEVO175T5 PO; OXYGEN; PRED5TAB PO
[2017-07-27] MEDS ORDERED: ALBUTEROL 0.5%, 20ML NPPB SCH (12:00)
[2017-07-27] MEDS ORDERED: ONDANSETRON 2MG/ML, 2ML IVP ONE (12:00)
[2017-07-27] MEDS ORDERED: IPRATROPIUM 0.5 MG/2.5 ML INHA NPPB ONE (12:00)
[2017-07-27] MEDS ORDERED: SODIUM CHLORIDE FLUSH 10ML SYR IVF ONE (12:00)
[2017-07-27] MEDS ORDERED: KETOROLAC 60 MG/2 ML IV ONE (12:00)
[2017-07-27] MEDS ORDERED: ONDANSETRON 2MG/ML, 2ML ONE (12:14)
[2017-07-27] MEDS ORDERED: KETOROLAC 30 MG/1 ML ONE (12:14)
[2017-07-27] MEDS ORDERED: ALBUTEROL/IPRATROPIUM 2.5MG/0.5MG, 3 ML ONE (12:16)
[2017-07-27 12:18] LABS: BASOPHILS # (AUTO) 0.05 x10^3/uL (0-0.1); BASOPHILS % (AUTO) 1 % (0-1); EOSINOPHILS # (AUTO) 0.11 x10^3/uL (0-0.4); EOSINOPHILS % (AUTO) 1 % (1-7); LYMPHOCYTES # (AUTO) 1.57 x10^3/uL (1-3.4); LYMPHOCYTES % (AUTO) 15 % (22-44); MD NO; MEAN CORPUSCULAR HEMOGLOBIN 29.5 pg (27.0-34.8); MEAN CORPUSCULAR HGB CONC 33.4 g/dL (32.4-35.8); MEAN CORPUSCULAR VOLUME 88.4 fL (80-100); MEAN PLATELET VOLUME 6.9 fL (7.4-10.4); MONOCYTES % (AUTO) 5 % (2-9); NEUTROPHILS # (AUTO) 8.23 x10^3/uL (1.8-6.8); NEUTROPHILS % (AUTO) 79 % (42-75); PLATELET COUNT 290 x10^3/uL (130-400); RED BLOOD COUNT 4.66 x10^6/uL (3.82-5.3); RED CELL DISTRIBUTION WIDTH 14.7 % (9.6-15.2)
[2017-07-27 12:30] LABS: ALBUMIN 3.7 g/dL (3.4-5.0); ANION GAP 7 mmol/L (5-15); CALCIUM 8.8 mg/dL (8.5-10.1); CHLORIDE 100 mmol/L (98-107)
[2017-07-27 12:35] LABS: ALANINE AMINOTRANSFERASE 15 U/L (12-78); ALKALINE PHOSPHATASE 79 U/L (45-117); BILIRUBIN,TOTAL 0.4 mg/dL (0.2-1.0); CREATININE 0.59 mg/dL (0.55-1.02); TOTAL PROTEIN 7.9 g/dL (6.4-8.2); TROPONIN I < 0.015 ng/mL (0.000-0.045)
[2017-07-27 14:11] LABS: CULTURE INDICATED? YES; MICROSCOPIC INDICATED
[2017-07-27 16:13] VITALS: BP 118/66
[2017-07-27 17:19] VITALS: BP 118/66
[2017-07-27] MEDS ORDERED: CYCLOBENZAPRINE 10 MG TABLET PO PRN (17:30)
[2017-07-27] MEDS ORDERED: BISACODYL 10 MG SUPP PR PRN (17:30)
[2017-07-27] MEDS ORDERED: POLYETHYLENE GLYCOL 17 GM PACKET PO PRN (17:30)
[2017-07-27] MEDS ORDERED: ONDANSETRON 2MG/ML, 2ML IVPush PRN (17:30)
[2017-07-27] MEDS ORDERED: morphine SULFATE 10 MG/ML, 1ML IVPush PRN (17:30)
[2017-07-27] MEDS ORDERED: ACETAMINOPHEN 325 MG TABLET PO PRN (17:30)
[2017-07-27 17:50] LABS: BASOPHILS # (AUTO) 0.01 x10^3/uL (0-0.1); BASOPHILS % (AUTO) 0 % (0-1); EOSINOPHILS # (AUTO) 0.01 x10^3/uL (0-0.4); EOSINOPHILS % (AUTO) 0 % (1-7); LYMPHOCYTES # (AUTO) 0.47 x10^3/uL (1-3.4); LYMPHOCYTES % (AUTO) 5 % (22-44); MD NO; MEAN CORPUSCULAR HGB CONC 32.5 g/dL (32.4-35.8); MEAN CORPUSCULAR VOLUME 89.3 fL (80-100); MEAN PLATELET VOLUME 7.1 fL (7.4-10.4); MONOCYTES # (AUTO) 0.11 x10^3/uL (0.2-0.8); MONOCYTES % (AUTO) 1 % (2-9); NEUTROPHILS # (AUTO) 9.64 x10^3/uL (1.8-6.8); NEUTROPHILS % (AUTO) 94 % (42-75); PLATELET COUNT 290 x10^3/uL (130-400); RED BLOOD COUNT 4.62 x10^6/uL (3.82-5.3); RED CELL DISTRIBUTION WIDTH 14.6 % (9.6-15.2)
[2017-07-27] MEDS: CEFTRIAXONE PMX 1GM/50ML 50 ML IV SCH (17:59)
[2017-07-27] MEDS: methylPREDNISolone SOD SUCC 125 MG/2 ML IVPush SCH (17:59)
[2017-07-27 18:07] LABS: HEMOGLOBIN A1C 4.8 % (4.2-6.3)
[2017-07-27 18:15] LABS: FREE T4 (FREE THYROXINE) 1.34 ng/dL (0.76-1.46); THYROID STIMULATING HORMONE 0.01 mIU/L (0.358-3.740)
[2017-07-27] MEDS ORDERED: ALBUTEROL/IPRATROPIUM 2.5MG/0.5MG, 3 ML NPPB SCH ×2 (19:00→20:00)
[2017-07-27] MEDS: ALBUTEROL/IPRATROPIUM 2.5MG/0.5MG, 3 ML HHN SCH ×2 (19:30→22:50)
[2017-07-27] MEDS ORDERED: GADOBUTROL 7.5 MMOL/7.5 ML PFS ONE (20:11)
[2017-07-27 20:53] VITALS: BP 153/85
[2017-07-27] MEDS: HEPARIN 5,000 UNITS/ML, 1ML SQ SCH (21:08)
[2017-07-27] MEDS: DOXYCYCLINE 100MG TABLET PO SCH (21:08)
[2017-07-27] MEDS: HYDROcodone/APAP 10/325 MG TABLET PO SCH (21:08)
[2017-07-27] MEDS: FLUTICASONE/VILANTEROL 200-25MCG/INH INH SCH (22:10)
[2017-07-28] MEDS: methylPREDNISolone SOD SUCC 125 MG/2 ML IVPush SCH ×5 (00:30→23:05)
[2017-07-28 01:44] VITALS: BP 133/82
[2017-07-28 04:48] LABS: CHLORIDE 101 mmol/L (98-107)
[2017-07-28 04:55] LABS: ALANINE AMINOTRANSFERASE 15 U/L (12-78); ALBUMIN 3.5 g/dL (3.4-5.0); ALKALINE PHOSPHATASE 76 U/L (45-117); ANION GAP 5 mmol/L (5-15); BILIRUBIN,TOTAL 0.4 mg/dL (0.2-1.0); CALCIUM 9.1 mg/dL (8.5-10.1); CHOL/HDL RATIO 3.3; CHOLESTEROL, TOTAL 182 mg/dL (140-239); CREATININE 0.68 mg/dL (0.55-1.02); HDL CHOL % 31 % (28-40); HDL CHOLESTEROL (DIRECT) 56 mg/dL (40-60); LDL CHOLESTEROL,CALCULATED 105 mg/dL (54-169); LDL/HDL RATIO 1.9 (0.5-3.0); TOTAL PROTEIN 7.6 g/dL (6.4-8.2); TRIGLYCERIDES 105 mg/dL (50-200); VLDL CHOLESTEROL 21 mg/dL (0-25)
[2017-07-28] MEDS: HEPARIN 5,000 UNITS/ML, 1ML SQ SCH ×3 (05:59→20:40)
[2017-07-28] MEDS ORDERED: LEVOTHYROXINE 125 MCG TABLET PO SCH (06:00)
[2017-07-28] MEDS: OXYcodone IR 5MG TABLET PO PRN ×3 (06:09→23:05)
[2017-07-28 07:45] VITALS: BP 154/89
[2017-07-28] MEDS: ALBUTEROL/IPRATROPIUM 2.5MG/0.5MG, 3 ML HHN SCH ×5 (08:15→22:00)
[2017-07-28] MEDS: SENNA/DOCUSATE TABLET PO SCH (08:16)
[2017-07-28] MEDS: HYDROcodone/APAP 10/325 MG TABLET PO SCH ×3 (08:32→20:40)
[2017-07-28] MEDS ORDERED: LEVOTHYROXINE 175 MCG TABLET PO SCH (09:00)
[2017-07-28] MEDS ORDERED: CITALOPRAM 20 MG TABLET PO SCH (09:00)
[2017-07-28] MEDS: DOXYCYCLINE 100MG TABLET PO SCH ×2 (09:34→20:40)
[2017-07-28] MEDS: ASPIRIN 325 MG TABLET EC PO SCH (09:35)
[2017-07-28] MEDS: ERGOCALCIFEROL 50,000 UNIT CAPSULE PO SCH (09:38)
[2017-07-28] MEDS: FLUTICASONE/VILANTEROL 200-25MCG/INH INH SCH (09:40)
[2017-07-28] MEDS: METHOCARBAMOL 500 MG TABLET PO SCH ×3 (12:49→20:40)
[2017-07-28 14:34] VITALS: BP 159/95
[2017-07-28] MEDS: CEFTRIAXONE PMX 1GM/50ML 50 ML IV SCH (17:34)
[2017-07-28 19:35] VITALS: BP 169/82
[2017-07-28] MEDS ORDERED: OMNIPAQUE 350 MG/ML, 100ML BOTTLE ONE (20:37)
[2017-07-29] VITALS (7 sets, daily range): BP systolic 155–200; BP diastolic 74–99
[2017-07-29] MEDS: OXYcodone IR 5MG TABLET PO PRN ×2 (03:24→07:48)
[2017-07-29] MEDS: ALBUTEROL/IPRATROPIUM 2.5MG/0.5MG, 3 ML HHN SCH ×6 (03:26→22:25)
[2017-07-29] MEDS: HEPARIN 5,000 UNITS/ML, 1ML SQ SCH ×3 (05:25→21:30)
[2017-07-29] MEDS: methylPREDNISolone SOD SUCC 125 MG/2 ML IVPush SCH ×3 (05:25→17:31)
[2017-07-29] MEDS: LEVOTHYROXINE 125 MCG TABLET PO SCH (05:25)
[2017-07-29] MEDS: hydrALAzine 20 MG/ML, 1ML IVPush PRN (05:36)
[2017-07-29] MEDS: ENALAPRILAT 1.25 MG/ML, 2ML IVPush PRN ×2 (07:21→08:02)
[2017-07-29] MEDS ORDERED: FUROSEMIDE 20 MG/2 ML IV ONE (09:00)
[2017-07-29] MEDS: LOSARTAN 50MG TABLET PO SCH (10:51)
[2017-07-29] MEDS: FLUTICASONE/VILANTEROL 200-25MCG/INH INH SCH (10:51)
[2017-07-29] MEDS: METHOCARBAMOL 500 MG TABLET PO SCH ×3 (10:51→21:34)
[2017-07-29] MEDS: DOXYCYCLINE 100MG TABLET PO SCH ×2 (10:52→21:42)
[2017-07-29] MEDS: ASPIRIN 325 MG TABLET EC PO SCH (10:52)
[2017-07-29] MEDS: CITALOPRAM 20 MG TABLET PO SCH (10:52)
[2017-07-29] MEDS: SENNA/DOCUSATE TABLET PO SCH (10:53)
[2017-07-29] MEDS: HYDROcodone/APAP 10/325 MG TABLET PO SCH ×3 (11:15→21:34)
[2017-07-29] MEDS ORDERED: HYDROmorphone 1 MG/ML, 1ML IV PRN (11:30)
[2017-07-29] MEDS: BUTALB/APAP/CAFFEINE 50MG/325MG/40MG PO PRN ×3 (12:35→21:42)
[2017-07-29] MEDS: CEFTRIAXONE PMX 1GM/50ML 50 ML IV SCH (17:32)
[2017-07-29] MEDS: ALPRazolam 1MG TABLET PO PRN (17:32)
[2017-07-30] MEDS: methylPREDNISolone SOD SUCC 125 MG/2 ML IVPush SCH ×3 (01:00→17:32)
[2017-07-30 01:07] VITALS: BP 155/82
[2017-07-30] MEDS: OXYcodone IR 5MG TABLET PO PRN ×2 (03:32→14:59)
[2017-07-30] MEDS: ALPRazolam 1MG TABLET PO PRN ×3 (03:37→21:57)
[2017-07-30] MEDS: BUTALB/APAP/CAFFEINE 50MG/325MG/40MG PO PRN ×4 (03:37→21:57)
[2017-07-30] MEDS: HEPARIN 5,000 UNITS/ML, 1ML SQ SCH ×3 (05:30→21:30)
[2017-07-30] MEDS: ALBUTEROL/IPRATROPIUM 2.5MG/0.5MG, 3 ML HHN SCH ×5 (06:00→22:00)
[2017-07-30] MEDS: LEVOTHYROXINE 125 MCG TABLET PO SCH (06:28)
[2017-07-30 07:28] VITALS: BP 160/106
[2017-07-30] MEDS: DOXYCYCLINE 100MG TABLET PO SCH ×2 (08:51→21:50)
[2017-07-30] MEDS: FLUTICASONE/VILANTEROL 200-25MCG/INH INH SCH (08:51)
[2017-07-30] MEDS: SENNA/DOCUSATE TABLET PO SCH (08:52)
[2017-07-30] MEDS: LOSARTAN 50MG TABLET PO SCH (08:54)
[2017-07-30] MEDS: CITALOPRAM 20 MG TABLET PO SCH (08:54)
[2017-07-30] MEDS: ASPIRIN 325 MG TABLET EC PO SCH (08:54)
[2017-07-30] MEDS: HYDROcodone/APAP 10/325 MG TABLET PO SCH ×3 (08:55→21:50)
[2017-07-30] MEDS: METHOCARBAMOL 500 MG TABLET PO SCH ×3 (09:00→21:50)
[2017-07-30] MEDS: hydrALAzine 20 MG/ML, 1ML IVPush PRN (09:13)
[2017-07-30 14:04] VITALS: BP 183/115
[2017-07-30] MEDS: LIDODERM 5% PATCH TD SCH (14:59)
[2017-07-30] MEDS: DILTIAZEM 120 MG CAP.ER.24H PO SCH (14:59)
[2017-07-30] MEDS: CEFTRIAXONE PMX 1GM/50ML 50 ML IV SCH (17:32)
[2017-07-30 20:15] VITALS: BP 131/73
[2017-07-30] MEDS: ATORVASTATIN 20 MG TABLET PO SCH (21:50)
[2017-07-31] VITALS (11 sets, daily range): BP systolic 108–209; BP diastolic 68–102
[2017-07-31] MEDS: methylPREDNISolone SOD SUCC 125 MG/2 ML IVPush SCH ×3 (01:38→17:48)
[2017-07-31] MEDS: LEVOTHYROXINE 125 MCG TABLET PO SCH (05:22)
[2017-07-31] MEDS: HEPARIN 5,000 UNITS/ML, 1ML SQ SCH ×3 (05:23→21:37)
[2017-07-31] MEDS: ALBUTEROL/IPRATROPIUM 2.5MG/0.5MG, 3 ML HHN SCH ×5 (06:00→21:51)
[2017-07-31] MEDS: METHOCARBAMOL 500 MG TABLET PO SCH ×3 (09:00→21:30)
[2017-07-31] MEDS: SENNA/DOCUSATE TABLET PO SCH (09:00)
[2017-07-31] MEDS: LOSARTAN 50MG TABLET PO SCH ×2 (09:00→21:29)
[2017-07-31] MEDS: DOXYCYCLINE 100MG TABLET PO SCH ×2 (09:51→21:29)
[2017-07-31] MEDS: ASPIRIN 325 MG TABLET EC PO SCH (09:52)
[2017-07-31] MEDS: CITALOPRAM 20 MG TABLET PO SCH (09:52)
[2017-07-31] MEDS: DILTIAZEM 120 MG CAP.ER.24H PO SCH (09:52)
[2017-07-31] MEDS: HYDROcodone/APAP 10/325 MG TABLET PO SCH (09:53)
[2017-07-31] MEDS: ENALAPRILAT 1.25 MG/ML, 2ML IVPush PRN (10:43)
[2017-07-31] MEDS: ALPRazolam 1MG TABLET PO PRN ×2 (10:49→19:18)
[2017-07-31] MEDS: FLUTICASONE/VILANTEROL 200-25MCG/INH INH SCH (10:54)
[2017-07-31] MEDS: hydrALAzine 20 MG/ML, 1ML IVPush PRN ×2 (10:56→11:05)
[2017-07-31] MEDS: BUTALB/APAP/CAFFEINE 50MG/325MG/40MG PO PRN ×2 (13:09→17:49)
[2017-07-31] MEDS: LIDODERM 5% PATCH TD SCH ×2 (14:10→17:10)
[2017-07-31] MEDS ORDERED: OXYcodone/APAP 10/325MG TABLET PO SCH (16:00)
[2017-07-31] MEDS ORDERED: LIDODERM 5% PATCH TD SCH (16:00)
[2017-07-31] MEDS: GABAPENTIN 100 MG CAPSULE PO SCH ×2 (17:09→21:29)
[2017-07-31] MEDS: CEFTRIAXONE PMX 1GM/50ML 50 ML IV SCH (17:49)
[2017-07-31] MEDS: ATORVASTATIN 20 MG TABLET PO SCH (21:30)
[2017-08-01] VITALS (8 sets, daily range): BP systolic 108–183; BP diastolic 64–92
[2017-08-01] MEDS: OXYcodone/APAP 10/325MG TABLET PO SCH ×4 (01:00→20:06)
[2017-08-01] MEDS: methylPREDNISolone SOD SUCC 125 MG/2 ML IVPush SCH ×4 (03:08→18:26)
[2017-08-01] MEDS: METHOCARBAMOL 500 MG TABLET PO SCH ×2 (05:44→11:49)
[2017-08-01] MEDS: GABAPENTIN 100 MG CAPSULE PO SCH ×4 (05:44→20:05)
[2017-08-01] MEDS: LEVOTHYROXINE 125 MCG TABLET PO SCH (05:44)
[2017-08-01] MEDS: HEPARIN 5,000 UNITS/ML, 1ML SQ SCH ×3 (05:44→20:05)
[2017-08-01] MEDS: ALPRazolam 1MG TABLET PO PRN (05:59)
[2017-08-01] MEDS: ALBUTEROL/IPRATROPIUM 2.5MG/0.5MG, 3 ML HHN SCH ×5 (08:10→19:51)
[2017-08-01] MEDS: SENNA/DOCUSATE TABLET PO SCH (09:00)
[2017-08-01] MEDS: LOSARTAN 50MG TABLET PO SCH ×2 (10:31→20:06)
[2017-08-01] MEDS: DOXYCYCLINE 100MG TABLET PO SCH ×2 (10:31→20:05)
[2017-08-01] MEDS: ASPIRIN 325 MG TABLET EC PO SCH (10:31)
[2017-08-01] MEDS: CITALOPRAM 20 MG TABLET PO SCH (10:32)
[2017-08-01] MEDS: DILTIAZEM 120 MG CAP.ER.24H PO SCH (10:34)
[2017-08-01] MEDS: FLUTICASONE/VILANTEROL 200-25MCG/INH INH SCH (10:37)
[2017-08-01] MEDS ORDERED: HYDROmorphone 2 MG/ML, 1ML ONE (11:36)
[2017-08-01] MEDS: hydrALAzine 20 MG/ML, 1ML IVPush PRN (11:49)
[2017-08-01] MEDS: ENALAPRILAT 1.25 MG/ML, 2ML IVPush PRN (12:47)
[2017-08-01] MEDS: LORazepam 1MG TABLET PO PRN ×2 (16:50→20:06)
[2017-08-01] MEDS: LIDODERM 5% PATCH TD SCH (16:51)
[2017-08-01] MEDS: CEFTRIAXONE PMX 1GM/50ML 50 ML IV SCH (18:26)
[2017-08-01] MEDS: ATORVASTATIN 20 MG TABLET PO SCH (20:06)
[2017-08-02] VITALS (12 sets, daily range): BP systolic 130–213; BP diastolic 70–100
[2017-08-02] MEDS: methylPREDNISolone SOD SUCC 125 MG/2 ML IVPush SCH ×4 (00:25→18:22)
[2017-08-02] MEDS: OXYcodone/APAP 10/325MG TABLET PO SCH ×4 (01:17→18:22)
[2017-08-02] MEDS: GABAPENTIN 100 MG CAPSULE PO SCH ×4 (05:10→21:14)
[2017-08-02] MEDS: LEVOTHYROXINE 125 MCG TABLET PO SCH (05:10)
[2017-08-02] MEDS: HEPARIN 5,000 UNITS/ML, 1ML SQ SCH ×3 (05:10→21:15)
[2017-08-02 05:35] LABS: BASOPHILS % (AUTO) 0 % (0-1); EOSINOPHILS % (AUTO) 0 % (1-7); LYMPHOCYTES # (AUTO) 0.56 x10^3/uL (1-3.4); LYMPHOCYTES % (AUTO) 4 % (22-44); MD NO; MEAN CORPUSCULAR HEMOGLOBIN 29.4 pg (27.0-34.8); MEAN CORPUSCULAR HGB CONC 32.7 g/dL (32.4-35.8); MEAN CORPUSCULAR VOLUME 89.8 fL (80-100); MEAN PLATELET VOLUME 7.5 fL (7.4-10.4); MONOCYTES # (AUTO) 0.17 x10^3/uL (0.2-0.8); MONOCYTES % (AUTO) 1 % (2-9); NEUTROPHILS # (AUTO) 12.05 x10^3/uL (1.8-6.8); NEUTROPHILS % (AUTO) 94 % (42-75); PLATELET COUNT 264 x10^3/uL (130-400); RED BLOOD COUNT 4.49 x10^6/uL (3.82-5.3); RED CELL DISTRIBUTION WIDTH 14.8 % (9.6-15.2)
[2017-08-02 05:42] LABS: CHLORIDE 108 mmol/L (98-107)
[2017-08-02 05:58] LABS: ANION GAP 9 mmol/L (5-15); CALCIUM 8.1 mg/dL (8.5-10.1)
[2017-08-02] MEDS: LOSARTAN 50MG TABLET PO SCH ×2 (06:34→21:14)
[2017-08-02] MEDS: ALBUTEROL/IPRATROPIUM 2.5MG/0.5MG, 3 ML HHN SCH ×2 (06:42→10:40)
[2017-08-02] MEDS: DILTIAZEM 120 MG CAP.ER.24H PO SCH (08:11)
[2017-08-02] MEDS: OXYcodone IR 5MG TABLET PO PRN ×3 (08:11→21:14)
[2017-08-02] MEDS: CITALOPRAM 20 MG TABLET PO SCH (08:49)
[2017-08-02] MEDS: DOXYCYCLINE 100MG TABLET PO SCH ×2 (08:49→21:14)
[2017-08-02] MEDS: SENNA/DOCUSATE TABLET PO SCH (08:49)
[2017-08-02] MEDS: FLUTICASONE/VILANTEROL 200-25MCG/INH INH SCH (08:49)
[2017-08-02] MEDS: ASPIRIN 325 MG TABLET EC PO SCH (08:49)
[2017-08-02] MEDS: ENALAPRILAT 1.25 MG/ML, 2ML IVPush PRN (12:19)
[2017-08-02] MEDS: hydrALAzine 20 MG/ML, 1ML IVPush PRN (13:28)
[2017-08-02] MEDS: ALBUTEROL SULFATE 2.5 MG/3 ML NPPB PRN (14:25)
[2017-08-02] MEDS: LORazepam 1MG TABLET PO PRN ×2 (14:59→21:14)
[2017-08-02] MEDS: LIDODERM 5% PATCH TD SCH (16:08)
[2017-08-02] MEDS: CEFTRIAXONE PMX 1GM/50ML 50 ML IV SCH (17:52)
[2017-08-02] MEDS: ISOSORBIDE MONONITRATE ER 30 MG TABLET PO SCH (18:22)
[2017-08-02 18:30] LABS: TROPONIN I < 0.015 ng/mL (0.000-0.045)
[2017-08-02] MEDS: ATORVASTATIN 20 MG TABLET PO SCH (21:14)
[2017-08-03] MEDS: OXYcodone/APAP 10/325MG TABLET PO SCH ×4 (00:52→22:04)
[2017-08-03] MEDS: methylPREDNISolone SOD SUCC 125 MG/2 ML IVPush SCH ×4 (00:52→22:04)
[2017-08-03 01:30] VITALS: BP 138/70
[2017-08-03] MEDS: BUTALB/APAP/CAFFEINE 50MG/325MG/40MG PO PRN ×2 (03:06→20:01)
[2017-08-03] MEDS: HEPARIN 5,000 UNITS/ML, 1ML SQ SCH ×3 (05:42→22:05)
[2017-08-03] MEDS: LEVOTHYROXINE 125 MCG TABLET PO SCH (05:42)
[2017-08-03] MEDS: GABAPENTIN 100 MG CAPSULE PO SCH ×4 (05:42→22:04)
[2017-08-03 08:55] VITALS: BP 195/98
[2017-08-03] MEDS: SENNA/DOCUSATE TABLET PO SCH (09:00)
[2017-08-03] MEDS: DOXYCYCLINE 100MG TABLET PO SCH ×2 (09:01→22:04)
[2017-08-03] MEDS: ASPIRIN 325 MG TABLET EC PO SCH (09:01)
[2017-08-03] MEDS ORDERED: REGADENOSON 0.4 MG/5 ML SYRINGE ONE (10:26)
[2017-08-03] MEDS: FLUTICASONE/VILANTEROL 200-25MCG/INH INH SCH (12:07)
[2017-08-03] MEDS: LORazepam 1MG TABLET PO PRN (12:11)
[2017-08-03] MEDS: LOSARTAN 50MG TABLET PO SCH ×2 (12:12→20:01)
[2017-08-03] MEDS: ISOSORBIDE MONONITRATE ER 30 MG TABLET PO SCH (12:12)
[2017-08-03] MEDS: DILTIAZEM 120 MG CAP.ER.24H PO SCH (12:12)
[2017-08-03] MEDS: CITALOPRAM 20 MG TABLET PO SCH (12:12)
[2017-08-03] MEDS: OXYcodone IR 5MG TABLET PO PRN (12:18)
[2017-08-03 13:41] VITALS: BP 155/75
[2017-08-03] MEDS: CEFTRIAXONE PMX 1GM/50ML 50 ML IV SCH (17:21)
[2017-08-03] MEDS: LIDODERM 5% PATCH TD SCH (17:22)
[2017-08-03 18:52] VITALS: BP 177/92
[2017-08-03] MEDS: ATORVASTATIN 20 MG TABLET PO SCH (20:00)
[2017-08-03] MEDS: ALBUTEROL SULFATE 2.5 MG/3 ML NPPB PRN (21:35)
[2017-08-03 22:20] VITALS: BP 192/97
[2017-08-03] MEDS: ENALAPRILAT 1.25 MG/ML, 2ML IVPush PRN (22:22)
[2017-08-03 22:40] VITALS: BP 171/78
[2017-08-04] VITALS (7 sets, daily range): BP systolic 122–173; BP diastolic 62–93
[2017-08-04] MEDS: BUTALB/APAP/CAFFEINE 50MG/325MG/40MG PO PRN ×3 (01:27→22:07)
[2017-08-04] MEDS: LORazepam 1MG TABLET PO PRN ×2 (02:31→13:31)
[2017-08-04] MEDS: methylPREDNISolone SOD SUCC 125 MG/2 ML IVPush SCH ×4 (03:59→23:04)
[2017-08-04] MEDS: OXYcodone/APAP 10/325MG TABLET PO SCH ×4 (04:00→23:51)
[2017-08-04] MEDS: HEPARIN 5,000 UNITS/ML, 1ML SQ SCH ×3 (05:42→21:52)
[2017-08-04] MEDS: LEVOTHYROXINE 125 MCG TABLET PO SCH (05:42)
[2017-08-04] MEDS: GABAPENTIN 100 MG CAPSULE PO SCH ×4 (05:42→21:48)
[2017-08-04] MEDS: ALBUTEROL SULFATE 2.5 MG/3 ML NPPB PRN (07:35)
[2017-08-04] MEDS: SENNA/DOCUSATE TABLET PO SCH (09:00)
[2017-08-04] MEDS: FLUTICASONE/VILANTEROL 200-25MCG/INH INH SCH (09:25)
[2017-08-04] MEDS: CITALOPRAM 20 MG TABLET PO SCH (09:26)
[2017-08-04] MEDS: OXYcodone IR 5MG TABLET PO PRN ×2 (09:27→13:31)
[2017-08-04] MEDS: ERGOCALCIFEROL 50,000 UNIT CAPSULE PO SCH (09:27)
[2017-08-04] MEDS: DOXYCYCLINE 100MG TABLET PO SCH ×2 (09:27→21:48)
[2017-08-04] MEDS: LOSARTAN 50MG TABLET PO SCH ×2 (09:27→21:48)
[2017-08-04] MEDS: ASPIRIN 325 MG TABLET EC PO SCH (09:27)
[2017-08-04] MEDS: ISOSORBIDE MONONITRATE ER 60 MG TABLET PO SCH (09:27)
[2017-08-04] MEDS: DILTIAZEM 120 MG CAP.ER.24H PO SCH (09:28)
[2017-08-04] MEDS: ALBUTEROL SULFATE 2.5 MG/3 ML NPPB SCH ×3 (11:00→19:14)
[2017-08-04] MEDS: METHOCARBAMOL 500 MG TABLET PO PRN (11:14)
[2017-08-04] MEDS: LIDODERM 5% PATCH TD SCH (17:44)
[2017-08-04] MEDS: CEFTRIAXONE PMX 1GM/50ML 50 ML IV SCH (17:44)
[2017-08-04] MEDS: ATORVASTATIN 20 MG TABLET PO SCH (21:48)
[2017-08-05] VITALS (7 sets, daily range): BP systolic 111–194; BP diastolic 62–84
[2017-08-05] MEDS: ALBUTEROL SULFATE 2.5 MG/3 ML NPPB SCH ×5 (03:50→19:27)
[2017-08-05] MEDS: BUTALB/APAP/CAFFEINE 50MG/325MG/40MG PO PRN (04:09)
[2017-08-05] MEDS: OXYcodone/APAP 10/325MG TABLET PO SCH ×4 (05:32→23:49)
[2017-08-05] MEDS: LEVOTHYROXINE 125 MCG TABLET PO SCH (05:32)
[2017-08-05] MEDS: GABAPENTIN 100 MG CAPSULE PO SCH ×4 (05:32→20:53)
[2017-08-05] MEDS: methylPREDNISolone SOD SUCC 125 MG/2 ML IVPush SCH ×4 (05:33→23:49)
[2017-08-05] MEDS: HEPARIN 5,000 UNITS/ML, 1ML SQ SCH ×3 (05:33→22:19)
[2017-08-05] MEDS: ISOSORBIDE MONONITRATE ER 60 MG TABLET PO SCH (09:00)
[2017-08-05] MEDS: DILTIAZEM 120 MG CAP.ER.24H PO SCH (09:00)
[2017-08-05] MEDS: FLUTICASONE/VILANTEROL 200-25MCG/INH INH SCH (09:05)
[2017-08-05] MEDS: SENNA/DOCUSATE TABLET PO SCH (09:06)
[2017-08-05] MEDS: ASPIRIN 325 MG TABLET EC PO SCH (09:07)
[2017-08-05] MEDS: CITALOPRAM 20 MG TABLET PO SCH (09:07)
[2017-08-05] MEDS: DOXYCYCLINE 100MG TABLET PO SCH ×2 (09:07→20:53)
[2017-08-05] MEDS: LOSARTAN 50MG TABLET PO SCH ×2 (09:07→20:54)
[2017-08-05] MEDS: LORazepam 1MG TABLET PO PRN (09:07)
[2017-08-05] MEDS: OXYcodone IR 5MG TABLET PO PRN ×2 (09:07→21:01)
[2017-08-05] MEDS: LIDODERM 5% PATCH TD SCH (18:18)
[2017-08-05] MEDS: CEFTRIAXONE PMX 1GM/50ML 50 ML IV SCH (18:19)
[2017-08-05] MEDS: ATORVASTATIN 20 MG TABLET PO SCH (20:53)
[2017-08-05] MEDS: METHOCARBAMOL 500 MG TABLET PO PRN (22:27)
[2017-08-06] MEDS: BUTALB/APAP/CAFFEINE 50MG/325MG/40MG PO PRN ×3 (01:15→17:27)
[2017-08-06 02:59] VITALS: BP 228/96
[2017-08-06] MEDS: LEVOTHYROXINE 125 MCG TABLET PO SCH (05:25)
[2017-08-06] MEDS: OXYcodone/APAP 10/325MG TABLET PO SCH ×2 (05:38→13:09)
[2017-08-06] MEDS: methylPREDNISolone SOD SUCC 125 MG/2 ML IVPush SCH ×2 (05:38→11:45)
[2017-08-06] MEDS: GABAPENTIN 100 MG CAPSULE PO SCH ×3 (05:38→17:04)
[2017-08-06] MEDS: HEPARIN 5,000 UNITS/ML, 1ML SQ SCH ×2 (05:38→13:30)
[2017-08-06 06:23] VITALS: BP 186/82
[2017-08-06] MEDS: ALBUTEROL SULFATE 2.5 MG/3 ML NPPB SCH ×3 (06:45→14:03)
[2017-08-06 07:00] VITALS: BP 175/83
[2017-08-06] MEDS: SENNA/DOCUSATE TABLET PO SCH (08:41)
[2017-08-06] MEDS: FLUTICASONE/VILANTEROL 200-25MCG/INH INH SCH (08:41)
[2017-08-06] MEDS: ISOSORBIDE MONONITRATE ER 60 MG TABLET PO SCH (08:42)
[2017-08-06] MEDS: LOSARTAN 50MG TABLET PO SCH (08:42)
[2017-08-06] MEDS: CITALOPRAM 20 MG TABLET PO SCH (08:42)
[2017-08-06] MEDS: OXYcodone IR 5MG TABLET PO PRN (08:42)
[2017-08-06] MEDS: ASPIRIN 325 MG TABLET EC PO SCH (08:42)
[2017-08-06] MEDS: DILTIAZEM 120 MG CAP.ER.24H PO SCH (08:43)
[2017-08-06] MEDS: DOXYCYCLINE 100MG TABLET PO SCH (08:49)
[2017-08-06] MEDS: LORazepam 1MG TABLET PO PRN ×2 (10:18→17:11)
[2017-08-06] MEDS ORDERED: AMLODIPINE 5 MG TABLET PO SCH (13:30)
[2017-08-06 13:42] VITALS: BP 168/82
[2017-08-06 14:00] VITALS: BP 175/83
[2017-08-06] MEDS ORDERED: Lidoderm 5% Patch TD (14:33)
[2017-08-06] MEDS ORDERED: BISA10SU65 PR (14:33)
[2017-08-06] MEDS ORDERED: SENN1TAB7 PO (14:33)
[2017-08-06] MEDS ORDERED: FLUT1BLS INH (14:33)
[2017-08-06] MEDS ORDERED: ALBU2.5V NPPB ×2 (14:33)
[2017-08-06] MEDS ORDERED: ISOS60TA36 PO (14:33)
[2017-08-06] MEDS ORDERED: GABA300C10 PO (14:33)
[2017-08-06] MEDS ORDERED: METH750T2 PO (14:33)
[2017-08-06] MEDS ORDERED: LOSA50TA2 PO (14:33)
[2017-08-06] MEDS ORDERED: POLY17PO5 PO (14:33)
[2017-08-06] MEDS ORDERED: LEVO125T PO (14:33)
[2017-08-06] MEDS ORDERED: DILT120C9 PO (14:33)
[2017-08-06] MEDS ORDERED: ATOR20TA9 PO (14:33)
[2017-08-06] MEDS ORDERED: AMLO5TAB2 PO (14:33)
[2017-08-06] MEDS ORDERED: ERGO500017 PO (14:33)
[2017-08-06] MEDS ORDERED: PRED5TAB PO (14:36)
[2017-08-06] MEDS ORDERED: OXYC1TAB9 PO (15:31)
[2017-08-06] MEDS ORDERED: LORA-446 PO (15:37)
[2017-08-06 16:43] VITALS: BP 175/83
[2017-08-06] MEDS: LIDODERM 5% PATCH TD SCH (17:05)
== END 2017-08-06 17:34 | DRG 189 ==
LOC: ED 13:24 → EDIP 14:35 → 3NE 15:49
PROVIDERS: ADMIT Internal Medicine; ATTEND Internal Medicine
DX: J96.21 Acute and chronic respiratory failure with hypoxia (principal); D75.1 Secondary polycythemia; Z99.81 Dependence on supplemental oxygen; J44.1 Chronic obstructive pulmonary disease with (acute) exacerbation; J98.11 Atelectasis; M48.54XA Collapsed vertebra, not elsewhere classified, thoracic region, initial encounter for fracture; E03.9 Hypothyroidism, unspecified; F17.200 Nicotine dependence, unspecified, uncomplicated; F32.9 Major depressive disorder, single episode, unspecified; F41.1 Generalized anxiety disorder; I10 Essential (primary) hypertension; I25.10 Atherosclerotic heart disease of native coronary artery without angina pectoris; M19.90 Unspecified osteoarthritis, unspecified site; M47.812 Spondylosis without myelopathy or radiculopathy, cervical region; M53.82 Other specified dorsopathies, cervical region; Z95.5 Presence of coronary angioplasty implant and graft; Z88.5 Allergy status to narcotic agent; Z88.8 Allergy status to other drugs, medicaments and biological substances
CPT/HCPCS: 36415; 36600; 71045; 71275; 72156; 72157; 78452; 80048; 80053; 80061; 81001; 82306; 82607; 82803; 83036; 83605; 83735; 83880; 84439; 84443; 84484; 85025; 87040; 87086; 93005; 93017; 93306; 94640; 96374; 96375; A9585; J0696; J1170; J1644; J1885; J2405; J2785; J7613; J7620; J7644; Q9967; A9502; C9898; J0360; J1940; J2930; J7512

== ENCOUNTER 2017-08-19 11:39 | Inpatient (IN) | payer MEDICAID ==
[~2017-08-19] VITALS: Ht 152.4 cm; Wt 62.8 kg
[~2017-08-19 11:39] MED LIST changes: +ALBU2.5V NPPB; +AMLO5TAB2 PO; +ATOR20TA9 PO; +BISA10SU65 PR; +DILT120C9 PO; +ERGO500017 PO; +ETOMIDATE 20 MG/10 ML ONE; +FLUT1BLS INH; +GABA300C10 PO; +ISOS60TA36 PO; +LEVO125T PO; +LORA-446 PO; +LOSA50TA2 PO; +Lidoderm 5% Patch TD; +METH750T2 PO; +MIDAZOLAM 1 MG/ML, 5ML ONE; +OXYC1TAB9 PO; +POLY17PO5 PO; +PROPOFOL 10 MG/ML, 100ML IV ONE; +PROPOFOL 10 MG/ML, 20ML ONE; +SENN1TAB7 PO; +SUCCINYLCHOLINE 20 MG/ML, 10ML ONE
[2017-08-19] MEDS ORDERED: ALBUTEROL/IPRATROPIUM 2.5MG/0.5MG, 3 ML ONE ×3 (11:49→16:38)
[2017-08-19] MEDS ORDERED: ALBUTEROL SULFATE 2.5MG/0.5ML ONE (11:49)
[2017-08-19] MEDS ORDERED: MAGNESIUM SULFATE PMX 2GM/50ML 50 ML IV ONE (12:00)
[2017-08-19] MEDS ORDERED: SODIUM CHLORIDE FLUSH 10ML SYR IVF ONE (12:00)
[2017-08-19] MEDS ORDERED: methylPREDNISolone SOD SUCC 125 MG/2 ML IVP ONE (12:00)
[2017-08-19] MEDS ORDERED: methylPREDNISolone SOD SUCC 125 MG/2 ML ONE (12:02)
[2017-08-19] MEDS ORDERED: SODIUM CHLORIDE 0.9% 1,000 ML IV ONE (12:25)
[2017-08-19] MEDS ORDERED: SODIUM CHLORIDE 0.9% 1,000ML IVBOLUS ONE ×2 (12:30→16:00)
[2017-08-19 12:35] LABS: BASOPHILS # (AUTO) 0.04 x10^3/uL (0-0.1); BASOPHILS % (AUTO) 0 % (0-1); EOSINOPHILS # (AUTO) 0.01 x10^3/uL (0-0.4); EOSINOPHILS % (AUTO) 0 % (1-7); LYMPHOCYTES # (AUTO) 1.37 x10^3/uL (1-3.4); LYMPHOCYTES % (AUTO) 10 % (22-44); MD NO; MEAN CORPUSCULAR HEMOGLOBIN 29.4 pg (27.0-34.8); MEAN CORPUSCULAR HGB CONC 32.5 g/dL (32.4-35.8); MEAN CORPUSCULAR VOLUME 90.4 fL (80-100); MEAN PLATELET VOLUME 6.7 fL (7.4-10.4); MONOCYTES # (AUTO) 0.55 x10^3/uL (0.2-0.8); MONOCYTES % (AUTO) 4 % (2-9); NEUTROPHILS # (AUTO) 12.34 x10^3/uL (1.8-6.8); NEUTROPHILS % (AUTO) 86 % (42-75); PLATELET COUNT 235 x10^3/uL (130-400); RED BLOOD COUNT 3.69 x10^6/uL (3.82-5.3); RED CELL DISTRIBUTION WIDTH 15.6 % (9.6-15.2)
[2017-08-19 12:46] LABS: ALANINE AMINOTRANSFERASE 36 U/L (12-78); ALBUMIN 2.7 g/dL (3.4-5.0); ANION GAP 6 mmol/L (5-15); CALCIUM 8.6 mg/dL (8.5-10.1); CHLORIDE 96 mmol/L (98-107); CREATININE 0.68 mg/dL (0.55-1.02)
[2017-08-19 12:50] LABS: ALKALINE PHOSPHATASE 118 U/L (45-117); BILIRUBIN,TOTAL 0.5 mg/dL (0.2-1.0); TOTAL PROTEIN 7.8 g/dL (6.4-8.2)
[2017-08-19 12:57] LABS: TROPONIN I < 0.015 ng/mL (0.000-0.045)
[2017-08-19] MEDS: PROPOFOL 100 ML IV PRN (14:30)
[2017-08-19] MEDS ORDERED: BISACODYL 10 MG SUPP PR PRN (14:30)
[2017-08-19] MEDS ORDERED: PROPOFOL 10 MG/ML, 20ML IVPush ONE (15:00)
[2017-08-19] MEDS ORDERED: MIDAZOLAM 1 MG/ML, 5ML IVP ONE (15:00)
[2017-08-19] MEDS ORDERED: ETOMIDATE 20 MG/10 ML IV ONE (15:00)
[2017-08-19] MEDS ORDERED: SUCCINYLCHOLINE 20 MG/ML, 10ML IVPush ONE (15:00)
[2017-08-19] MEDS ORDERED: SODIUM CHLORIDE FLUSH 10ML SYR IVF PRN (15:30)
[2017-08-19] MEDS ORDERED: VANCOMYCIN PER PHARMACY MC ONE (16:00)
[2017-08-19] MEDS ORDERED: PIPERACILLIN/TAZO/PMX 4.5GM 100 ML IVPB ONE (16:00)
[2017-08-19] MEDS ORDERED: PIPERACILLIN/TAZO/PMX 3.375GM 0 ML ONE (16:24)
[2017-08-19] MEDS ORDERED: VANCOMYCIN 1,200 MG in SODIUM CHLORIDE 0.9% 250 ML IV ONE (16:30)
[2017-08-19] MEDS: NOREPINEPHRINE 4 MG in SODIUM CHLORIDE 0.9% 246 ML IV PRN (17:37)
[2017-08-19 17:52] LABS: RAPID INFLUENZA A Negative (Negative); RAPID INFLUENZA B Negative (Negative)
[2017-08-19] MEDS ORDERED: VANCOMYCIN PER PHARMACY MC PRN (19:00)
[2017-08-19 20:00] VITALS: BP 102/52
[2017-08-19] MEDS: methylPREDNISolone SOD SUCC 125 MG/2 ML IVPush SCH (20:37)
[2017-08-19] MEDS ORDERED: PHARMACOKINETIC MONITORING MC PRN (21:00)
[2017-08-19] MEDS ORDERED: PHARMACOKINETIC CONSULTATION MC ONE (21:00)
[2017-08-19] MEDS: ATORVASTATIN 20 MG TABLET PO SCH (22:25)
[2017-08-19] MEDS: PIPERACILLIN/TAZO/PMX 3.375GM 50 ML IV SCH (22:54)
[2017-08-19] MEDS ORDERED: PROPOFOL 100 ML IV PRN (23:02)
[2017-08-19] MEDS ORDERED: LIDOCAINE-MPF 1%, 2ML ENDO PRN (23:30)
[2017-08-20] MEDS: NOREPINEPHRINE 4 MG in SODIUM CHLORIDE 0.9% 246 ML IV PRN (01:44)
[2017-08-20] MEDS: methylPREDNISolone SOD SUCC 125 MG/2 ML IVPush SCH ×4 (02:49→20:25)
[2017-08-20 03:21] VITALS: BP 102/52
[2017-08-20 04:00] VITALS: BP 136/70
[2017-08-20] MEDS: PROPOFOL 100 ML IV PRN (04:06)
[2017-08-20] MEDS: PIPERACILLIN/TAZO/PMX 3.375GM 50 ML IV SCH ×4 (04:37→22:56)
[2017-08-20 05:03] LABS: BASOPHILS % (AUTO) 0 % (0-1); EOSINOPHILS % (AUTO) 0 % (1-7); LYMPHOCYTES # (AUTO) 0.47 x10^3/uL (1-3.4); LYMPHOCYTES % (AUTO) 5 % (22-44); MD NO; MEAN CORPUSCULAR HEMOGLOBIN 29.6 pg (27.0-34.8); MEAN CORPUSCULAR HGB CONC 33.1 g/dL (32.4-35.8); MEAN CORPUSCULAR VOLUME 89.4 fL (80-100); MEAN PLATELET VOLUME 6.7 fL (7.4-10.4); MONOCYTES # (AUTO) 0.09 x10^3/uL (0.2-0.8); MONOCYTES % (AUTO) 1 % (2-9); NEUTROPHILS # (AUTO) 8.97 x10^3/uL (1.8-6.8); NEUTROPHILS % (AUTO) 94 % (42-75); PLATELET COUNT 247 x10^3/uL (130-400); RED CELL DISTRIBUTION WIDTH 15.1 % (9.6-15.2)
[2017-08-20 05:08] LABS: CHLORIDE 104 mmol/L (98-107)
[2017-08-20 05:15] LABS: ALANINE AMINOTRANSFERASE 39 U/L (12-78); ALBUMIN 2.4 g/dL (3.4-5.0); ALKALINE PHOSPHATASE 130 U/L (45-117); ANION GAP 8 mmol/L (5-15); BILIRUBIN,TOTAL 0.3 mg/dL (0.2-1.0); CALCIUM 8.1 mg/dL (8.5-10.1); CREATININE 0.76 mg/dL (0.55-1.02); TOTAL PROTEIN 7.2 g/dL (6.4-8.2)
[2017-08-20] MEDS: ASPIRIN 81 MG TABLET EC PO SCH (06:00)
[2017-08-20] MEDS: PANTOPRAZOLE 40 MG IV IVPush SCH (07:49)
[2017-08-20] MEDS ORDERED: FENTANYL PF 100 MCG/2ML ONE (09:41)
[2017-08-20] MEDS: VANCOMYCIN PMX 1GM/200ML 200 ML IVPB SCH (09:43)
[2017-08-20] MEDS: CITALOPRAM 20 MG TABLET PO SCH (09:43)
[2017-08-20] MEDS: FENTANYL PF 100 MCG/2ML IVPush PRN ×5 (09:44→19:38)
[2017-08-20] MEDS: ENOXAPARIN 40 MG/0.4 ML SQ SCH (11:15)
[2017-08-20] MEDS: ALBUTEROL/IPRATROPIUM 2.5MG/0.5MG, 3 ML INLINE SCH ×4 (11:30→22:53)
[2017-08-20] MEDS: LORazepam 0.5MG TABLET PO PRN (19:24)
[2017-08-20] MEDS: LEVOTHYROXINE 175 MCG TABLET PO SCH (20:25)
[2017-08-20] MEDS: ATORVASTATIN 20 MG TABLET PO SCH (20:25)
[2017-08-20] MEDS: GABAPENTIN 300 MG CAPSULE PO SCH (20:25)
[2017-08-21] MEDS: FENTANYL PF 100 MCG/2ML IVPush PRN ×3 (00:13→08:00)
[2017-08-21] MEDS: ALBUTEROL/IPRATROPIUM 2.5MG/0.5MG, 3 ML INLINE SCH ×6 (02:35→22:00)
[2017-08-21] MEDS: methylPREDNISolone SOD SUCC 125 MG/2 ML IVPush SCH ×4 (02:41→20:35)
[2017-08-21] MEDS: VANCOMYCIN PMX 1GM/200ML 200 ML IVPB SCH (02:44)
[2017-08-21 04:00] VITALS: BP 169/92
[2017-08-21 04:04] LABS: BASOPHILS # (AUTO) 0.01 x10^3/uL (0-0.1); BASOPHILS % (AUTO) 0 % (0-1); EOSINOPHILS % (AUTO) 0 % (1-7); LYMPHOCYTES # (AUTO) 0.42 x10^3/uL (1-3.4); LYMPHOCYTES % (AUTO) 5 % (22-44); MD NO; MEAN CORPUSCULAR HEMOGLOBIN 29.6 pg (27.0-34.8); MEAN CORPUSCULAR HGB CONC 33.4 g/dL (32.4-35.8); MEAN CORPUSCULAR VOLUME 88.6 fL (80-100); MEAN PLATELET VOLUME 6.7 fL (7.4-10.4); MONOCYTES # (AUTO) 0.15 x10^3/uL (0.2-0.8); MONOCYTES % (AUTO) 2 % (2-9); NEUTROPHILS % (AUTO) 93 % (42-75); PLATELET COUNT 264 x10^3/uL (130-400); RED BLOOD COUNT 3.43 x10^6/uL (3.82-5.3); RED CELL DISTRIBUTION WIDTH 15.9 % (9.6-15.2)
[2017-08-21 04:14] LABS: ANION GAP 7 mmol/L (5-15); CALCIUM 8.2 mg/dL (8.5-10.1); CHLORIDE 104 mmol/L (98-107); CREATININE 0.58 mg/dL (0.55-1.02)
[2017-08-21] MEDS: LORazepam 0.5MG TABLET PO PRN (04:42)
[2017-08-21] MEDS: PIPERACILLIN/TAZO/PMX 3.375GM 50 ML IV SCH ×2 (05:03→11:18)
[2017-08-21] MEDS: ASPIRIN 81 MG TABLET EC PO SCH (05:46)
[2017-08-21] MEDS: LEVOTHYROXINE 175 MCG TABLET PO SCH (05:46)
[2017-08-21] MEDS: PANTOPRAZOLE 40 MG IV IVPush SCH (08:00)
[2017-08-21] MEDS: LOSARTAN 50MG TABLET NG SCH (09:17)
[2017-08-21] MEDS: LORazepam 1MG TABLET PO PRN ×3 (09:21→20:54)
[2017-08-21] MEDS: CITALOPRAM 20 MG TABLET PO SCH (10:21)
[2017-08-21] MEDS: GABAPENTIN 300 MG CAPSULE PO SCH ×3 (10:21→20:54)
[2017-08-21] MEDS: ENOXAPARIN 40 MG/0.4 ML SQ SCH (10:23)
[2017-08-21] MEDS: DILTIAZEM 60 MG TABLET NG SCH ×3 (10:24→20:53)
[2017-08-21] MEDS: INSULIN LISPRO 100 UNITS/ML, PEN MEDIUM DOSE SS SQ-INSULIN SCH ×2 (11:52→17:22)
[2017-08-21] MEDS: AMLODIPINE 5 MG TABLET PO SCH (11:52)
[2017-08-21] MEDS: LINEZOLID PMX 600MG/300ML 300 ML IV SCH (14:24)
[2017-08-21] MEDS: OXYcodone/APAP 10/325MG TABLET PO PRN ×2 (17:14→23:16)
[2017-08-21] MEDS: ATORVASTATIN 20 MG TABLET PO SCH (20:54)
[2017-08-21] MEDS: INSULIN LISPRO 100 UNITS/ML, PEN SQ-INSULIN SCH (20:54)
[2017-08-22] MEDS: ALBUTEROL/IPRATROPIUM 2.5MG/0.5MG, 3 ML INLINE SCH ×2 (02:00→06:50)
[2017-08-22] MEDS: LINEZOLID PMX 600MG/300ML 300 ML IV SCH ×2 (02:43→14:30)
[2017-08-22] MEDS: methylPREDNISolone SOD SUCC 125 MG/2 ML IVPush SCH ×4 (02:56→20:29)
[2017-08-22] MEDS: INSULIN LISPRO 100 UNITS/ML, PEN SQ-INSULIN SCH ×4 (02:57→21:10)
[2017-08-22 03:56] LABS: BASOPHILS % (AUTO) 0 % (0-1); EOSINOPHILS % (AUTO) 0 % (1-7); LYMPHOCYTES # (AUTO) 0.32 x10^3/uL (1-3.4); LYMPHOCYTES % (AUTO) 4 % (22-44); MD NO; MEAN CORPUSCULAR HEMOGLOBIN 29.4 pg (27.0-34.8); MEAN CORPUSCULAR HGB CONC 32.6 g/dL (32.4-35.8); MEAN CORPUSCULAR VOLUME 90.1 fL (80-100); MEAN PLATELET VOLUME 6.4 fL (7.4-10.4); MONOCYTES # (AUTO) 0.21 x10^3/uL (0.2-0.8); MONOCYTES % (AUTO) 3 % (2-9); NEUTROPHILS # (AUTO) 7.57 x10^3/uL (1.8-6.8); NEUTROPHILS % (AUTO) 93 % (42-75); PLATELET COUNT 297 x10^3/uL (130-400); RED BLOOD COUNT 3.33 x10^6/uL (3.82-5.3); RED CELL DISTRIBUTION WIDTH 16.2 % (9.6-15.2)
[2017-08-22] MEDS: OXYcodone/APAP 10/325MG TABLET PO PRN ×2 (03:58→16:05)
[2017-08-22 04:00] VITALS: BP 127/75
[2017-08-22 04:04] LABS: ALANINE AMINOTRANSFERASE 35 U/L (12-78); ALBUMIN 2.5 g/dL (3.4-5.0); ANION GAP 1 mmol/L (5-15); CALCIUM 8.1 mg/dL (8.5-10.1); CHLORIDE 105 mmol/L (98-107); CREATININE 0.69 mg/dL (0.55-1.02); TRIGLYCERIDES 173 mg/dL (50-200)
[2017-08-22 04:06] LABS: ALKALINE PHOSPHATASE 110 U/L (45-117); BILIRUBIN,TOTAL 0.2 mg/dL (0.2-1.0); TOTAL PROTEIN 6.8 g/dL (6.4-8.2)
[2017-08-22] MEDS: DILTIAZEM 60 MG TABLET NG SCH ×4 (05:39→21:07)
[2017-08-22] MEDS: ASPIRIN 81 MG TABLET EC PO SCH (05:39)
[2017-08-22] MEDS: LEVOTHYROXINE 175 MCG TABLET PO SCH (05:39)
[2017-08-22] MEDS: LORazepam 1MG TABLET PO PRN (06:39)
[2017-08-22] MEDS: PANTOPRAZOLE 40 MG IV IVPush SCH (07:57)
[2017-08-22] MEDS: AMLODIPINE 5 MG TABLET PO SCH (09:21)
[2017-08-22] MEDS: LOSARTAN 50MG TABLET NG SCH (09:21)
[2017-08-22] MEDS: CITALOPRAM 20 MG TABLET PO SCH (09:21)
[2017-08-22] MEDS: POTASSIUM CHLORIDE 10% 40 MEQ/30 ML UDC PO SCH ×2 (09:21→21:09)
[2017-08-22] MEDS: GABAPENTIN 300 MG CAPSULE PO SCH ×3 (09:21→21:07)
[2017-08-22] MEDS: ENOXAPARIN 40 MG/0.4 ML SQ SCH (09:21)
[2017-08-22] MEDS: ALBUTEROL/IPRATROPIUM 2.5MG/0.5MG, 3 ML NPPB SCH ×4 (11:55→23:33)
[2017-08-22] MEDS: ATORVASTATIN 20 MG TABLET PO SCH (21:07)
[2017-08-23] MEDS: LINEZOLID PMX 600MG/300ML 300 ML IV SCH ×2 (02:21→13:50)
[2017-08-23] MEDS: methylPREDNISolone SOD SUCC 125 MG/2 ML IVPush SCH ×4 (02:23→21:07)
[2017-08-23] MEDS: INSULIN LISPRO 100 UNITS/ML, PEN SQ-INSULIN SCH ×4 (03:00→21:09)
[2017-08-23] MEDS: ALBUTEROL/IPRATROPIUM 2.5MG/0.5MG, 3 ML NPPB SCH ×6 (03:08→23:32)
[2017-08-23] MEDS: OXYcodone/APAP 10/325MG TABLET PO PRN ×2 (03:58→16:35)
[2017-08-23 04:00] VITALS: BP 163/84
[2017-08-23 04:13] LABS: BASOPHILS # (AUTO) 0.03 x10^3/uL (0-0.1); BASOPHILS % (AUTO) 0 % (0-1); EOSINOPHILS % (AUTO) 0 % (1-7); LYMPHOCYTES # (AUTO) 0.45 x10^3/uL (1-3.4); LYMPHOCYTES % (AUTO) 6 % (22-44); MD NO; MEAN CORPUSCULAR HEMOGLOBIN 29.3 pg (27.0-34.8); MEAN CORPUSCULAR HGB CONC 32.6 g/dL (32.4-35.8); MEAN CORPUSCULAR VOLUME 89.8 fL (80-100); MEAN PLATELET VOLUME 6.4 fL (7.4-10.4); MONOCYTES # (AUTO) 0.22 x10^3/uL (0.2-0.8); MONOCYTES % (AUTO) 3 % (2-9); NEUTROPHILS # (AUTO) 7.08 x10^3/uL (1.8-6.8); NEUTROPHILS % (AUTO) 91 % (42-75); PLATELET COUNT 321 x10^3/uL (130-400); RED BLOOD COUNT 3.64 x10^6/uL (3.82-5.3); RED CELL DISTRIBUTION WIDTH 15.7 % (9.6-15.2)
[2017-08-23] MEDS: LEVOTHYROXINE 175 MCG TABLET PO SCH (05:57)
[2017-08-23] MEDS: ASPIRIN 81 MG TABLET EC PO SCH (05:57)
[2017-08-23] MEDS: DILTIAZEM 60 MG TABLET NG SCH ×4 (05:57→21:08)
[2017-08-23] MEDS: PANTOPRAZOLE 40 MG IV IVPush SCH (08:10)
[2017-08-23] MEDS: GABAPENTIN 300 MG CAPSULE PO SCH ×3 (08:10→21:07)
[2017-08-23] MEDS: AMLODIPINE 5 MG TABLET PO SCH (08:11)
[2017-08-23] MEDS: CITALOPRAM 20 MG TABLET PO SCH (08:11)
[2017-08-23] MEDS: LOSARTAN 50MG TABLET NG SCH (08:12)
[2017-08-23] MEDS: ENOXAPARIN 40 MG/0.4 ML SQ SCH (09:36)
[2017-08-23] MEDS: FLUTICASONE/VILANTEROL 200-25MCG/INH INH SCH (11:36)
[2017-08-23] MEDS: ATORVASTATIN 20 MG TABLET PO SCH (21:07)
[2017-08-24] MEDS: LINEZOLID PMX 600MG/300ML 300 ML IV SCH ×2 (02:38→16:09)
[2017-08-24] MEDS: methylPREDNISolone SOD SUCC 125 MG/2 ML IVPush SCH ×4 (02:38→20:37)
[2017-08-24] MEDS: ALBUTEROL/IPRATROPIUM 2.5MG/0.5MG, 3 ML NPPB SCH ×6 (03:15→22:04)
[2017-08-24 04:00] VITALS: BP 132/74
[2017-08-24 04:23] LABS: MEAN CORPUSCULAR HGB CONC 32.2 g/dL (32.4-35.8); MEAN PLATELET VOLUME 6.4 fL (7.4-10.4); PLATELET COUNT 333 x10^3/uL (130-400); RED BLOOD COUNT 3.58 x10^6/uL (3.82-5.3); RED CELL DISTRIBUTION WIDTH 15.5 % (9.6-15.2)
[2017-08-24 04:35] LABS: ANION GAP 4 mmol/L (5-15); CALCIUM 8.3 mg/dL (8.5-10.1); CHLORIDE 103 mmol/L (98-107)
[2017-08-24 04:38] LABS: CREATININE 0.53 mg/dL (0.55-1.02)
[2017-08-24 05:46] LABS: BASOPHILS % (AUTO) 0 % (0-1); EOSINOPHILS % (AUTO) 0 % (1-7); LYMPHOCYTES # (AUTO) 0.34 x10^3/uL (1-3.4); LYMPHOCYTES % (AUTO) 6 % (22-44); MD SCAN; MONOCYTES # (AUTO) 0.14 x10^3/uL (0.2-0.8); MONOCYTES % (AUTO) 3 % (2-9); NEUTROPHILS # (AUTO) 5.29 x10^3/uL (1.8-6.8); NEUTROPHILS % (AUTO) 92 % (42-75)
[2017-08-24] MEDS: ASPIRIN 81 MG TABLET EC PO SCH (06:15)
[2017-08-24] MEDS: LEVOTHYROXINE 175 MCG TABLET PO SCH (06:15)
[2017-08-24] MEDS: DILTIAZEM 60 MG TABLET NG SCH ×4 (06:15→20:38)
[2017-08-24] MEDS: INSULIN LISPRO 100 UNITS/ML, PEN SQ-INSULIN SCH ×4 (07:00→20:41)
[2017-08-24] MEDS: PANTOPRAZOLE 40 MG IV IVPush SCH (07:41)
[2017-08-24] MEDS ORDERED: LORazepam 1MG TABLET ONE (09:05)
[2017-08-24] MEDS: LOSARTAN 50MG TABLET NG SCH (09:16)
[2017-08-24] MEDS: LORazepam 1MG TABLET PO PRN (09:16)
[2017-08-24] MEDS: FLUTICASONE/VILANTEROL 200-25MCG/INH INH SCH (09:16)
[2017-08-24] MEDS: GABAPENTIN 300 MG CAPSULE PO SCH ×3 (09:17→20:37)
[2017-08-24] MEDS: CITALOPRAM 20 MG TABLET PO SCH (09:17)
[2017-08-24] MEDS: AMLODIPINE 5 MG TABLET PO SCH (09:17)
[2017-08-24] MEDS: LIDODERM 5% PATCH TD SCH (09:18)
[2017-08-24] MEDS: ENOXAPARIN 40 MG/0.4 ML SQ SCH (09:18)
[2017-08-24] MEDS: OXYcodone/APAP 10/325MG TABLET PO PRN ×2 (09:24→17:19)
[2017-08-24] MEDS: ATORVASTATIN 20 MG TABLET PO SCH (20:38)
[2017-08-25] MEDS: LINEZOLID PMX 600MG/300ML 300 ML IV SCH ×2 (02:06→15:36)
[2017-08-25] MEDS: methylPREDNISolone SOD SUCC 125 MG/2 ML IVPush SCH ×4 (02:58→20:17)
[2017-08-25] MEDS: ALBUTEROL/IPRATROPIUM 2.5MG/0.5MG, 3 ML NPPB SCH ×6 (03:17→21:51)
[2017-08-25 04:02] VITALS: BP 123/66
[2017-08-25 04:24] LABS: BASOPHILS # (AUTO) 0.02 x10^3/uL (0-0.1); BASOPHILS % (AUTO) 0 % (0-1); EOSINOPHILS % (AUTO) 0 % (1-7); LYMPHOCYTES # (AUTO) 0.27 x10^3/uL (1-3.4); LYMPHOCYTES % (AUTO) 4 % (22-44); MD NO; MEAN CORPUSCULAR HEMOGLOBIN 29.3 pg (27.0-34.8); MEAN CORPUSCULAR HGB CONC 32.8 g/dL (32.4-35.8); MEAN CORPUSCULAR VOLUME 89.3 fL (80-100); MONOCYTES # (AUTO) 0.16 x10^3/uL (0.2-0.8); MONOCYTES % (AUTO) 3 % (2-9); NEUTROPHILS # (AUTO) 6.14 x10^3/uL (1.8-6.8); NEUTROPHILS % (AUTO) 93 % (42-75); PLATELET COUNT 398 x10^3/uL (130-400); RED BLOOD COUNT 3.64 x10^6/uL (3.82-5.3); RED CELL DISTRIBUTION WIDTH 15.7 % (9.6-15.2)
[2017-08-25] MEDS: LEVOTHYROXINE 175 MCG TABLET PO SCH (06:16)
[2017-08-25] MEDS: ASPIRIN 81 MG TABLET EC PO SCH (06:16)
[2017-08-25] MEDS: DILTIAZEM 60 MG TABLET NG SCH ×4 (06:16→20:18)
[2017-08-25] MEDS: OXYcodone/APAP 10/325MG TABLET PO PRN ×2 (06:37→22:17)
[2017-08-25] MEDS: INSULIN LISPRO 100 UNITS/ML, PEN SQ-INSULIN SCH ×4 (07:46→20:24)
[2017-08-25] MEDS: LIDODERM 5% PATCH TD SCH ×2 (07:47→20:27)
[2017-08-25] MEDS: GABAPENTIN 300 MG CAPSULE PO SCH ×3 (07:56→20:18)
[2017-08-25] MEDS: PANTOPRAZOLE 40 MG IV IVPush SCH (07:56)
[2017-08-25] MEDS: CITALOPRAM 20 MG TABLET PO SCH (07:57)
[2017-08-25] MEDS: LOSARTAN 50MG TABLET NG SCH (07:57)
[2017-08-25] MEDS: AMLODIPINE 5 MG TABLET PO SCH (07:57)
[2017-08-25] MEDS: ENOXAPARIN 40 MG/0.4 ML SQ SCH (07:58)
[2017-08-25] MEDS: FLUTICASONE/VILANTEROL 200-25MCG/INH INH SCH (08:02)
[2017-08-25] MEDS: LORazepam 1MG TABLET PO PRN (16:43)
[2017-08-25] MEDS: ATORVASTATIN 20 MG TABLET PO SCH (20:18)
[2017-08-26] MEDS: LINEZOLID PMX 600MG/300ML 300 ML IV SCH ×2 (01:36→14:20)
[2017-08-26] MEDS: methylPREDNISolone SOD SUCC 125 MG/2 ML IVPush SCH ×4 (01:36→19:54)
[2017-08-26] MEDS: ALBUTEROL/IPRATROPIUM 2.5MG/0.5MG, 3 ML NPPB SCH ×6 (01:44→22:18)
[2017-08-26 04:27] LABS: MEAN CORPUSCULAR HEMOGLOBIN 29.7 pg (27.0-34.8); MEAN CORPUSCULAR VOLUME 89.8 fL (80-100); MEAN PLATELET VOLUME 6.2 fL (7.4-10.4); PLATELET COUNT 466 x10^3/uL (130-400); RED BLOOD COUNT 3.67 x10^6/uL (3.82-5.3); RED CELL DISTRIBUTION WIDTH 15.4 % (9.6-15.2)
[2017-08-26 04:38] LABS: ALBUMIN 2.8 g/dL (3.4-5.0); ANION GAP 2 mmol/L (5-15); CALCIUM 8.1 mg/dL (8.5-10.1); CHLORIDE 105 mmol/L (98-107)
[2017-08-26 04:40] VITALS: BP 138/66
[2017-08-26 04:42] LABS: ALANINE AMINOTRANSFERASE 69 U/L (12-78); ALKALINE PHOSPHATASE 106 U/L (45-117); BILIRUBIN,TOTAL 0.2 mg/dL (0.2-1.0); CREATININE 0.54 mg/dL (0.55-1.02); TOTAL PROTEIN 6.2 g/dL (6.4-8.2)
[2017-08-26] MEDS ORDERED: DILTIAZEM 30 MG TABLET ONE (04:54)
[2017-08-26 05:07] LABS: BASOPHILS # (AUTO) 0.01 x10^3/uL (0-0.1); BASOPHILS % (AUTO) 0 % (0-1); EOSINOPHILS % (AUTO) 0 % (1-7); LYMPHOCYTES # (AUTO) 0.31 x10^3/uL (1-3.4); LYMPHOCYTES % (AUTO) 4 % (22-44); MD SCAN; MONOCYTES # (AUTO) 0.06 x10^3/uL (0.2-0.8); MONOCYTES % (AUTO) 1 % (2-9); NEUTROPHILS # (AUTO) 8.25 x10^3/uL (1.8-6.8); NEUTROPHILS % (AUTO) 96 % (42-75)
[2017-08-26] MEDS: DILTIAZEM 60 MG TABLET NG SCH ×4 (06:00→19:54)
[2017-08-26] MEDS: LEVOTHYROXINE 175 MCG TABLET PO SCH (06:10)
[2017-08-26] MEDS: ASPIRIN 81 MG TABLET EC PO SCH (06:11)
[2017-08-26] MEDS: INSULIN LISPRO 100 UNITS/ML, PEN SQ-INSULIN SCH ×4 (06:15→20:24)
[2017-08-26] MEDS: PANTOPRAZOLE 40 MG IV IVPush SCH (08:43)
[2017-08-26] MEDS: FLUTICASONE/VILANTEROL 200-25MCG/INH INH SCH (08:46)
[2017-08-26] MEDS: LOSARTAN 50MG TABLET NG SCH (08:47)
[2017-08-26] MEDS: AMLODIPINE 5 MG TABLET PO SCH (08:47)
[2017-08-26] MEDS: GABAPENTIN 300 MG CAPSULE PO SCH ×3 (08:47→19:55)
[2017-08-26] MEDS: CITALOPRAM 20 MG TABLET PO SCH (08:47)
[2017-08-26] MEDS: ENOXAPARIN 40 MG/0.4 ML SQ SCH (08:49)
[2017-08-26] MEDS: OXYcodone/APAP 10/325MG TABLET PO PRN (09:00)
[2017-08-26] MEDS: LORazepam 1MG TABLET PO PRN (18:33)
[2017-08-26] MEDS: ATORVASTATIN 20 MG TABLET PO SCH (19:54)
[2017-08-26] MEDS: LIDODERM 5% PATCH TD SCH (19:55)
[2017-08-27] MEDS: methylPREDNISolone SOD SUCC 125 MG/2 ML IVPush SCH ×3 (02:02→14:30)
[2017-08-27] MEDS: LINEZOLID PMX 600MG/300ML 300 ML IV SCH ×2 (02:02→14:00)
[2017-08-27] MEDS: ALBUTEROL/IPRATROPIUM 2.5MG/0.5MG, 3 ML NPPB SCH ×4 (02:27→13:47)
[2017-08-27] MEDS: LORazepam 1MG TABLET PO PRN ×3 (02:58→13:02)
[2017-08-27 05:55] VITALS: BP 150/80
[2017-08-27] MEDS: PANTOPRAZOLE 40 MG IV IVPush SCH (06:24)
[2017-08-27] MEDS: ASPIRIN 81 MG TABLET EC PO SCH (06:25)
[2017-08-27] MEDS: DILTIAZEM 60 MG TABLET NG SCH ×2 (06:25→11:00)
[2017-08-27] MEDS: LEVOTHYROXINE 175 MCG TABLET PO SCH (06:25)
[2017-08-27] MEDS: INSULIN LISPRO 100 UNITS/ML, PEN SQ-INSULIN SCH ×2 (06:26→11:00)
[2017-08-27] MEDS ORDERED: LINE600T37 PO (08:32)
[2017-08-27] MEDS ORDERED: PRED5TAB PO (08:32)
[2017-08-27] MEDS: FLUTICASONE/VILANTEROL 200-25MCG/INH INH SCH (08:48)
[2017-08-27] MEDS: LOSARTAN 50MG TABLET NG SCH (08:49)
[2017-08-27] MEDS: ENOXAPARIN 40 MG/0.4 ML SQ SCH (08:49)
[2017-08-27] MEDS: CITALOPRAM 20 MG TABLET PO SCH (08:49)
[2017-08-27] MEDS: GABAPENTIN 300 MG CAPSULE PO SCH (08:49)
[2017-08-27] MEDS: AMLODIPINE 5 MG TABLET PO SCH (08:49)
[2017-08-27] MEDS: OXYcodone/APAP 10/325MG TABLET PO PRN (09:07)
== END 2017-08-27 14:59 | disposition hospice, home (50) | DRG 871 ==
LOC: ED 12:30 → EDIP 15:20 → ICU 19:42 → CCU 08-21 15:20
PROVIDERS: ADMIT Hospitalist; ATTEND Hospitalist
PROC: 5A1945Z Respiratory Ventilation, 24-96 Consecutive Hours (ICD-10-PCS; principal; 2017-08-19)
PROC: 0BH17EZ Insertion of Endotracheal Airway into Trachea, Via Natural or Artificial Opening (ICD-10-PCS; 2017-08-19)
PROC: 5A09357 Assistance with Respiratory Ventilation, Less than 24 Consecutive Hours, Continuous Positive Airway Pressure (ICD-10-PCS; 2017-08-19)
PROC: 02HV33Z Insertion of Infusion Device into Superior Vena Cava, Percutaneous Approach (ICD-10-PCS; 2017-08-19)
DX: A41.9 Sepsis, unspecified organism (principal); G93.41 Metabolic encephalopathy; J96.21 Acute and chronic respiratory failure with hypoxia; Z99.11 Dependence on respirator [ventilator] status; J81.1 Chronic pulmonary edema; J18.9 Pneumonia, unspecified organism; E87.2 Acidosis; J44.0 Chronic obstructive pulmonary disease with (acute) lower respiratory infection; J96.22 Acute and chronic respiratory failure with hypercapnia; J44.1 Chronic obstructive pulmonary disease with (acute) exacerbation; J98.11 Atelectasis; E03.9 Hypothyroidism, unspecified; E78.5 Hyperlipidemia, unspecified; F17.200 Nicotine dependence, unspecified, uncomplicated; F41.1 Generalized anxiety disorder; F41.8 Other specified anxiety disorders; I25.10 Atherosclerotic heart disease of native coronary artery without angina pectoris; I10 Essential (primary) hypertension; M19.90 Unspecified osteoarthritis, unspecified site; Z66 Do not resuscitate; Z90.710 Acquired absence of both cervix and uterus; Z95.5 Presence of coronary angioplasty implant and graft; Z99.81 Dependence on supplemental oxygen; Z90.49 Acquired absence of other specified parts of digestive tract; Z88.8 Allergy status to other drugs, medicaments and biological substances; Z88.5 Allergy status to narcotic agent
CPT/HCPCS: 31500; 36415; 36569; 36600; 71045; 80048; 80053; 82803; 82962; 83605; 83735; 83880; 84100; 84145; 84478; 84484; 85025; 87040; 87070; 87077; 87081; 87205; 87400; 93005; 94002; 94003; 94150; 94640; 94660; 96374; 96375; J1650; J2020; J2250; J2543; J2704; J3010; J3370; J7620; C9113; J0330; J1815; J2930; J3475; J7030; J7050